=== PATIENT | female | born 1955 | race Hispanic/Latino ===

== ENCOUNTER → 2023-02-28 08:37 | Day surgery (SDC) | payer OTHER, SELFPAY ==
--- NOTE | 2023-02-28 09:01 | W.PN.UPDATE ---
Update Note
Progress Note Update
Pt here with son today. Pt admits to feeling unwell with flu like symptoms for the last 2-3days. Afebrile but has had chills, congestion, fatigue. For this reason we will be rescheduling procedure today. Pt and son are in agreement. Office notified
to reschedule
== END ==
LOC: CATH 08:37
PROVIDERS: ATTENDING PHYSICIAN Surgery Vascular Surgery; FAMILY PHYSICIAN Family Medicine
DX: N18.6 End stage renal disease (principal); Z53.09 Procedure and treatment not carried out because of other contraindication; I12.0 Hypertensive chronic kidney disease with stage 5 chronic kidney disease or end stage renal disease

== ENCOUNTER 2023-03-14 09:21 | Day surgery (SDC) | payer MEDICAID, SELFPAY ==
[2023-03-14] VITALS (14 sets, daily range): BP systolic 123–177; BP diastolic 57–86; BMI 27.8
[2023-03-14] MEDS: PERIDEX 0.12% ORAL RINSE 15 ML PO (10:22)
[2023-03-14] MEDS: BACTROBAN NASAL 1 GRAM NASAL (10:22)
[2023-03-14] MEDS: NSS 500 IV (10:22)
[2023-03-14 10:24] LABS: Hematocrit 25.8 % (37.0-47.0); Hemoglobin 8.7 g/dL (12.0-16.0); Mean Corp Hgb Conc. 33.7 g/dL (33.0-37.0); Mean Corpuscular Hgb 28.2 pg (27.0-31.0); Mean Corpuscular Volume 83.8 fL (81.0-99.0); Mean Platelet Volume 8.5 fL (7.4-10.4); Platelet Count 53 10^3/uL (130-400); Red Blood Cell Count 3.08 10^6/uL (4.20-5.40); Red Cell Dist. Width 15.3 % (11.5-14.5)
[2023-03-14 10:38] LABS: INR 1.31; PT 16.4 Sec (11.4-14.6)
[2023-03-14 10:47] LABS: APTT 54.3 Sec (23.4-35.0)
[2023-03-14 11:05] LABS: Blood Urea Nitrogen 38 mg/dl (7-17); Calcium 6.3 mg/dl (8.4-10.2); Carbon Dioxide 23 mmol/L (22-30); Chloride 105 mmol/L (98-107); Estimated Creatinine Clearance 7 ml/min; Glucose 100 mg/dl (70-99); Potassium 4.5 mmol/L (3.5-5.1); Sodium 137 mmol/L (135-145); eGFR 8.35
--- NOTE | 2023-03-14 11:21 | PTCARENOTE ---
Recd patient, son at bedside, Dr Kohler spoke at bedside and consent form signed, pt here for creation of fistular, pending to have procedure
--- NOTE | 2023-03-14 11:33 | W.SUR.PREOP ---
Pre-Operative Surgical Note
-
I have examined this patient prior to the performance of the scheduled procedure.
The patient's condition is unchanged from the time of the current History and
Physical and the patient is able to undergo the scheduled procedure.
--- NOTE | 2023-03-14 13:31 | W.SUR.POST ---
Surgical Immediate Post Op
Note
Pre Op Diagnosis: ESRD
Post Op Diagnosis: ESRD
Procedure Performed: Left upper extremity AV graft with 4 x 7 [place] propatent, exploration left wrist cephalic vein
Primary Surgeon: Mal Kohler MD
Assist: JAIME Mcmahan
Anesthesia: GETA
Estimated Blood Loss: 25 ml
Fluids: See anesthesia flowsheet
Drains/Shunts: N/A
Specimens/Cultures: N/A
Doppler/Duplex/Angio (Y/N): Y, duplex
Complications: None
Operative Findings: + thrill, palpable radial pulse
[2023-03-14] MEDS: DDAVP 54.25 MCG IV (14:35)
--- NOTE | 2023-03-14 14:58 | OR.RPT ---
Operative Report
Operative Report
PROCEDURE DATE: 03/14/2023
Preoperative diagnosis: CKD stage V
Postoperative diagnosis: Same
Procedure:
1. Exploration left wrist cephalic vein.
2. Left upper extremity upper arm AV graft with [place] Propaten 7 mm x 4 mm tapered graft.
Surgeon: Jose F
Frog Catcher: BRANDON Villalobos, required for all aspects of procedure including traction/countertraction, following of suture line, assistance with closure.
Complications: None
Anesthesia: General
Indications for procedure:
Chronic kidney disease approaching hemodialysis needs. Was referred for access. Risk/benefits/alternatives of AV access were discussed. She understood all wish to proceed. Of note the patient had chronic low platelets. Platelets prior to the
procedure were 53,000.
Description of procedure:
Patient was identified brought to the operating room placed on the table in supine position. Prior to prepping the patient, but after induction of anesthesia, I used an ultrasound probe to assess the upper arm and forearm veins in the left upper
extremity. The left forearm cephalic vein looks like the only reasonable vein actually. Given her low platelets, concern for bleeding, I elected to try to explore the cephalic vein here to see if we could avoid more extensive incisions. After the
adequate administration of anesthesia she was prepped and draped in the standard surgical fashion. A standard preoperative timeout was undertaken and everybody was in agreement the plan. A longitudinal incision made in the left distal
forearm/wrist on the radial aspect was carried through skin subcutaneous tissue. I identified the cephalic vein in the lateral aspect of the dissection field. It was a very reasonable vein. I mobilized it out of its bed and ligated any branches
between silk ties and then divided them.
Next I deepened my dissection on the medial aspect of the dissection field. This was carried through the fascial layer. And then identified the radial artery. Unfortunately, the radial artery was slightly small, but more importantly had
circumferential severe calcified plaque. To palpation it felt like would. I gently dissected more cephalad and noted as far as I could slide my finger up the artery was similar in consistency and caliber. Therefore I felt that this would not make
for a good fistula despite the adequacy of the vein.
Given that the patient did not have suitable upper arm veins, I elected to proceed with a graft. I made a longitudinal incision in the distal medial upper arm that is carried through skin subcutaneous tissue and then through the fascial layer.
Identified the brachial artery and then carefully dissected away from surrounding structures and great care to avoid any injury to structures. I passed Vesseloops around it proximally and distally.
Next I made an incision in the medial very proximal upper arm just distal to the antecubital fossa was carried through skin subcutaneous tissue. I carried this through the fascial layer. Identified what appeared to be one of the deep veins
(brachial or continuation of the axillary). Identified the nerve and then the artery as well. Of note there was a more superficial artery branch as well. It appeared to me that there may have been a high bifurcation of the radial artery and that
the more distal dissection was likely the ulnar artery. Although difficult to ascertain for sure. Regardless, the vein just superficial to the artery appeared to be the larger of the deep veins. I therefore now created a subcutaneous tunnel
between the 2 incision sites using a Guillermina tunneler and then I passed a [place] Propaten 7 mm x 4 mm tapered graft with a 4 mm and at the artery side. Next I gave the patient 3000 units of intravenous heparin. I then double up and tightened
Vesseloops on the artery proximally distally. I made an arteriotomy with 11 blade extended using a Schmidt scissor. I then beveled the 4 mm end of the graft and sewed an end to side anastomosis using [place] CV 6 suture in a running fashion. I
completed and tied to my suture line and then backbled and forward bled the artery through the graft and then clamped the graft. Next I released flow in the [place] artery system. There is good flow into the graft with pulsatility in the graft.
At this point I then placed bulldog clamps on the vein and the my proximal incision proximally distally. I made a venotomy with an 11 blade extended using a Schmidt scissor. I then trimmed and beveled the 7 mm end of the graft and sewed an end to
side anastomosis using a running [place] CV 6 suture. Prior to completing and tying to my suture line I backbled and forward bled the [place] vein, and then I flushed out the graft. Next I completed and tied down my suture line. I then released flow
in the graft by released my graft clamp. Now there is an excellent thrill through the graft. There was some oozing along the suture lines both at the arterial and venous sides. A couple of [place] CV 6 [id number] type sutures were placed along
the suture lines at any bleeding sites. However most of the bleeding sites were needle hole based. The patient's platelets were low, and I feel that this played a big role in oozing. Therefore I meticulously took a great amount of time to
achieved thorough hemostasis. We also called for DDAVP to be given as well. Finally I was able to achieve full hemostasis. Therefore I avoided having to give platelet transfusion.
We irrigated all 3 incision sites. They were all then closed in layers using 3-0 Vicryl deep dermal followed by 4 Monocryl subcuticular running suture. Dermabond was applied to all the sites. The patient tolerated procedure well.
[2023-03-14] MEDS: SUBLIMAZE 25 MCG IV (15:12)
[2023-03-14 15:28] LABS: Glucose - Point of Care 133 mg/dl (70-99)
== END 2023-03-14 18:05 | disposition home or self-care (01) ==
LOC: CATH 09:21
PROVIDERS: ATTENDING PHYSICIAN Surgery Vascular Surgery; FAMILY PHYSICIAN Internal Medicine
DX: N18.5 Chronic kidney disease, stage 5 (principal); I13.2 Hypertensive heart and chronic kidney disease with heart failure and with stage 5 chronic kidney disease, or end stage renal disease; I50.9 Heart failure, unspecified; E83.39 Other disorders of phosphorus metabolism; K51.90 Ulcerative colitis, unspecified, without complications; Z93.3 Colostomy status; K21.9 Gastro-esophageal reflux disease without esophagitis; E87.20 Acidosis, unspecified
CPT/HCPCS: 36830; 80048; 82962; 85027; 85610; 85730; 86850; 86900; 86901; 93005; J2597

== ENCOUNTER 2023-03-16 23:10 | Inpatient (IN) | payer MEDICAID, SELFPAY ==
[2023-03-16] VITALS (11 sets, daily range): BP systolic 144–163; BP diastolic 68–80; PULSE 2–100; BMI 26.5
[2023-03-16 21:44] LABS: % Basophils 0.3 % (0-2); % Eosinophils 1.1 % (0-6); % Immature Granulocytes 0.7 % (0-0.5); % Lymphocytes 9.6 % (20.5-51.1); % Monocytes 3.9 % (1.7-9.3); % Neutrophils 84.4 % (42.2-75.2); Absolute Eosinophils 0.1 10^3/uL (0-0.7); Absolute Immature Granulocytes 0.1 10^3/uL (0-0.05); Absolute Lymphocytes 0.7 10^3/uL (1.2-3.4); Absolute Monocytes 0.3 10^3/uL (0.1-0.6); Absolute Neutrophils 6.1 10^3/uL (1.4-6.5); Hematocrit 26.3 % (37.0-47.0); Hemoglobin 8.8 g/dL (12.0-16.0); Mean Corp Hgb Conc. 33.5 g/dL (33.0-37.0); Mean Corpuscular Volume 83.8 fL (81.0-99.0); Nucleated Red Blood Cells % 0 %; Red Blood Cell Count 3.14 10^6/uL (4.20-5.40); Red Cell Dist. Width 15.1 % (11.5-14.5); White Blood Cell Count 7.3 10^3/uL (4.8-10.8)
[2023-03-16 21:57] LABS: Mean Platelet Volume 8.6 fL (7.4-10.4); Platelet Count 90 10^3/uL (130-400)
[2023-03-16 22:00] LABS: ALT (SGPT) < 10 U/L (0-35); AST (SGOT) 25 U/L (14-36); Albumin 4.5 g/dl (3.5-5.0); Alkaline Phosphatase 96 U/L (38-126); Blood Urea Nitrogen 52 mg/dl (7-17); Carbon Dioxide 21 mmol/L (22-30); Chloride 97 mmol/L (98-107); Glucose 129 mg/dl (70-99); Potassium 5.7 mmol/L (3.5-5.1); Sodium 133 mmol/L (135-145); Total Bilirubin 0.8 mg/dl (0.2-1.3); Total Protein 8.2 g/dl (6.3-8.2); eGFR 7.98
[2023-03-16] MEDS: LASIX 40 MG IV (22:07)
[2023-03-16 22:09] LABS: NT-proBNP > 27000 pg/ml; Troponin I 0.045 ng/ml
--- NOTE | 2023-03-16 22:29 | ED.GENMED ---
History of Present Illness
General
Chief Complaint: Breathing Problem
Source: patient and family
Exam Limitations: none
Time Seen by Provider: 03/16/23 21:39
Travel History
Have you had any contact with someone who has COVID-19?: No
Do you have any symptoms of coronavirus? Fever > 100 degrees, chills, cough, shortness of breath, sore throat, loss of taste or smell, muscle aches, or headache?: Yes
Symptoms:: shortness
History of Present Illness
History of Present Illness:
57-year-old female sudden onset of shortness of breath 2 to 3 hours ago. Patient with a history of renal failure. Recently had an AV fistula placed. Apparently scheduled to start dialysis in the near future. No chest pain no fever no infectious
symptoms.
Past History
Past History
ED Past Medical History: Other (Renal failure. Ulcerative colitis)
ED Past Surgical History: Gynecological and Other (Colostomy. AV fistula)
Social History
Tobacco: Former smoker
Personal:
Living: with family
Employment: Retired
Family History
Family History: Other (reviewed and noncontributory)
Review of Systems
Review of Systems
All Other Systems: Not applicable
Constitutional: Denies fever
Respiratory: Denies cough
Cardiac: Denies chest pain
Phy Exam
Physical Exam
Physical Exam:
GENERAL: Alert and oriented. Moderate tachypnea.
EYE: Orbits normal.
NECK: Supple, no significant adenopathy.
ENT: Pharynx without erythema
CARDIAC: Regular rate and rhythm without any obvious murmurs.
LUNGS: Diffuse rales throughout. Moderate tachypnea.
ABDOMEN: Soft, without focal tenderness or distention. Colostomy in place. No stool in the bag however abdomen is soft and nontender and there are bowel sounds present
NEUROLOGICAL: Alert and oriented , grossly non-focal
SKIN: Warm and dry, no rash or lesion, no discoloration, skin intact.
MUSCULOSKELETAL: Moderate bilateral lower extremity pitting edema
PSYCH: Normal and appropriate interaction.
Scores
Heart Failure Risk
Heart Failure Risk Score: Yes
History of Stroke or TIA: No
History of intubation for respiratory distress: No
Heart rate on ED arrival >/= 110: Yes
SaO2 <90% on arrival on room air: Yes
HR >/=110 during 3min walk test (or too ill to perform test): Yes
ECG has acute ischemic changes: No
Urea >/=12mmol/L (BUN 33.6mg/dL): Yes
Serum CO2>/=35mmol/L: No
Troponin I or T elevated to DC Level (0.4mg/dL): No
NT-proBNP >/=5,000ng/L (5,000pg/ml): Yes
HF Risk Score: 5
Admission Status: VERY HIGH RISK 39.8% Consider admission to hospital
Course
Orders/Labs/Results
Orders:
Orders
03/16/23 21:28
EKG [Electrocardiogram (*1)] Urgent
Reason for Study: Shortness of Breath
EKG- Treatment ONCE
03/16/23 21:38
Complete Blood Count/With Diff Urgent
Comprehensive Metabolic Panel Urgent
NT-proBNP Urgent
Troponin I Urgent
03/16/23 21:39
CXR Port [CR Chest Portable - 1 View] Urgent
Comment:
Reason For Exam: sob
Reason Study Needs to be Portable: Unable to Transport
03/16/23 21:46
Bipap [RESP] Urgent
Patient to use own unit?: No
Inspiratory Pressure (cm H2O): 12
Expiratory Pressure (cm H2O): 5
03/16/23 21:47
Furosemide [Lasix] 40 mg IV NOW STA
03/16/23 22:15
COVID-19 Antigen Urgent
Source: Nasal Swab
Influenza A+B Rapid Molecular Urgent
ROSMERY Source: Nasal Swab
Specimen Description:
03/16/23 22:55
Admit/Transfer Patient As Directed
Co-Sign Provider:
Level of Care: Inpatient admission
Assign to:: IMU- Intermediate Care
Physician / Group: smiley
Diagnosis: ESRD
Reason for Hospitalization: ESRD
Expected length of stay greater than two midnights?: Yes
ELOS- Estimated Length of Stay in days: 2
I certify the patient meets the requirements for IP care: Yes
03/16/23 22:56
Code Status As Directed
Resuscitation Status: Full Code
03/16/23 22:59
Abdomen Xray - 1 View [CR Abdomen - 1 View] Urgent
Comment:
Reason For Exam: distention, constipation
03/17/23 00:01
Acetaminophen [Tylenol] 1,000 mg PO Q6H PRN
03/17/23 00:01
NEPHROLOGY CONSULT Routine
Consulting Provider: Aramis Avendaño V.
Was physician already notified: Yes
Activity As Directed
Activity Level: As Tolerated
Pneumatic Compression Sleeves As Directed
Type: Knee high
Vital Signs As Directed
Frequency: Per unit guidelines
DX Deep Vein Thrombosis Video Routine
03/17/23 00:07
Pantoprazole [Protonix] 40 mg PO DAILYPRN PRN
03/17/23 06:00
Complete Blood Count/With Diff IN AM
Comprehensive Metabolic Panel IN AM
03/17/23 08:00
Calcium Acetate [Phoslo] 667 mg PO TID
Carvedilol [Coreg] 12.5 mg PO BID
Clonidine [Catapres] 0.1 mg PO BID
HydrALAZINE [Apresoline] 100 mg PO TID
Sodium Bicarbonate 1,300 mg PO TID
03/17/23 Dinner
NPO
Allow oral meds: Yes
Allow clear liquids: Sips of Clears
03/17/23 22:00
Amlodipine [Norvasc] 10 mg PO HS
Abnormal Lab Results
03/16/23
21:38
RBC 3.14 L 10^6/uL
(4.20-5.40)
Hgb 8.8 L g/dL
(12.0-16.0)
Hct 26.3 L %
(37.0-47.0)
RDW 15.1 H %
(11.5-14.5)
Plt Count 90 L D 10^3/uL
(130-400)
Abs Immat Gran (auto) 0.1 H 10^3/uL
(0-0.05)
Absolute Lymphs (auto) 0.7 L 10^3/uL
(1.2-3.4)
Immature Gran % 0.7 H %
(0-0.5)
Neutrophils % 84.4 H %
(42.2-75.2)
Lymphocytes % 9.6 L %
(20.5-51.1)
Sodium 133 L mmol/L
(135-145)
Potassium 5.7 H D mmol/L
(3.5-5.1)
Chloride 97 L mmol/L
(98-107)
Carbon Dioxide 21 L mmol/L
(22-30)
BUN 52 H mg/dl
(7-17)
Creatinine 5.5 H* mg/dL
(0.6-1.0)
Glucose 129 H mg/dl
(70-99)
Calcium 6.0 L* mg/dl
(8.4-10.2)
Troponin I 0.045 H* ng/ml
03/16/23 21:38
03/16/23 21:38
Vital Signs
Initial and Last Documented VS:
Initial Vital Signs
Temp Pulse Resp BP Pulse Ox
98.9 F 102 25 163/78 69
03/16/23 21:21 03/16/23 21:21 03/16/23 21:21 03/16/23 21:21 03/16/23 21:21
Last Documented Vital Signs
Temp Pulse Resp BP Pulse Ox
98.0 F 89 29 144/70 94
03/17/23 00:19 03/16/23 23:45 03/16/23 23:45 03/16/23 23:45 03/17/23 00:42
*Radiology
Radiology exam reviewed: preliminary read by ED provider (Pulmonary edema) and radiology read reviewed (Pulmonary edema)
*Pulse Oximetry
Patient hypoxic: yes
*Critical Care Note
Total Time (30-74mins, 75-104mins- exclusive of procedures): 40
Data Reviewed
Review of Other/Old Records Reveals: Labs, Records and Testing
Update Note
Update Note:
Patient rechecked multiple times. Appears relatively stable on the BiPAP. Discussed with nephrology. Discussed with hospitalist.
ED Attending Note
-
Portions of this chart may have been created with voice recognition software.� Occasional wrong word or��sound alike� substitutions may have occurred due to the inherent limitations of voice recognition software.
Discharge Plan
Departure
Patient Disposition: Admit
Date of Disposition: 03/16/23
Time of Disposition: 22:29
Presentation/result/management discussed w/ accepting MD/DO: Nephrology
Discharge Problem:
Flash pulmonary edema, Respiratory distress, Renal failure, Hyperkalemia, Anemia
Interventions
Interventions:
*Risk Screen - Suicide Last Done: 03/16/23 21:27
*General Assessment Last Done: 03/16/23 21:27
*Neglect/Abuse Screening Last Done: 03/16/23 21:27
*ED COVID-19 Vaccine History Last Done: 03/16/23 21:27
*Nursing Disposition Last Done: 03/17/23 00:08
ED- Cardiac Assessment Last Done: 03/16/23 21:54
ED- Pulmonary Assessment Last Done: 03/16/23 21:54
Discharge Date and Time
Discharge Date/Time: 03/17/23 00:09
[2023-03-16 22:35] LABS: COVID-19 Antigen Negative (Negative)
--- NOTE | 2023-03-16 23:01 | HPS.HSE ---
Family Physician
-
Family Physician: NOT KNOW UNKNOWN - PT DOES
Chief Complaint
-
shortness of breath
History of Present Illness
67-year-old Spanishj speaking female past medical history of CKD 5 with impending dialysis with recent AV fistula placed 2 days ago, hypertension, GERD, ulcerative colitis status post colostomy 15 years ago presenting with shortness of breath
starting 2 to 3 hours ago. Denies chest pain. No fever or cough. Has increased lower extremity edema. She does make urine.
Patient had left upper extremity fistula placed 2 days ago for impending dialysis. She has not had a bowel movement through her colostomy in 2 days. Abdomen is distended and tender to palpation. No nausea or vomiting.
No smoking or alcohol use.
Medical History
Past Medical History
Past Medical History: Reports Other (CKD 5 with impending dialysis with recent AV fistula placed 2 days ago, hypertension, GERD, ulcerative colitis status post colostomy 15 years ago)
Past Surgical History: Reports Other (colostomy )
Social History
Tobacco: Non-smoker
Alcohol: None
Drug: None
Family History
Family History: Not pertinent
Allergies / Home Medications
Allergies reflects when Allergies were last updated in [facility].
Home Medications with original date entered in [facility]
Allergy/Medication List:
Allergies
Allergy/AdvReac Type Severity Reaction Status Date / Time
shellfish derived Allergy Unknown Verified 03/16/23 21:27
Home Medications
furosemide 20 mg tablet 20 mg PO DAILY 30 days #30 tabs 05/29/21
sodium bicarbonate 650 mg tablet 1,300 mg PO TID 02/16/22
amlodipine 10 mg tablet 10 mg PO HS Blood pressure 06/19/22
carvedilol 12.5 mg tablet 12.5 mg PO BID 06/19/22
hydralazine 50 mg tablet 100 mg PO TID 06/19/22
omeprazole 20 mg tablet,delayed release 20 mg PO DAILYPRN PRN heartburn 06/19/22
acetaminophen 500 mg tablet 1,000 mg PO Q6H PRN mild pain/fever 02/23/23
clonidine HCl 0.1 mg tablet 0.1 mg PO BID 02/23/23
Guaifenesin DM 20 ml PO BIDPRN PRN cough 03/14/23
calcium acetate 667 mg tablet 667 mg PO TID 03/14/23
Review of Systems
-
History Source: Patient
A 12 point ROS was completed and negative except as noted: Yes
Constitutional: Reports No Symptoms
EENT: Reports No Symptoms
Respiratory: Reports See HPI
Cardiac: Reports No Symptoms
Abdomen/GI: Reports See HPI
: Reports No Symptoms
Musculoskeletal: Reports No Symptoms
Skin: Reports No Symptoms
Neurological: Reports No Symptoms
Endocrine: Reports No Symptoms
Hematologic/Lymphatic: Reports No Symptoms
Psych: Reports No Symptoms
Physical Exam
Vital Signs
Vital Signs
Temp Pulse Resp BP Pulse Ox
98.9 F 89 24 145/75 92
03/16/23 21:21 03/16/23 22:45 03/16/23 22:30 03/16/23 22:45 03/16/23 22:45
Physical Exam
General: Well Developed, Well Nourished and No Apparent Distress
HEENT: NormoCephalic, Moist mucous membranes and Atraumatic
Respiratory: Clear
Cardiac: S1/S2 and Regular Rhythm; No Murmur or Rub
GI: Soft, Normal Bowel Sounds, Tender and Distended; No Organomegaly
Rectal: Deferred by Provider
Musculoskeletal: No Clubbing, No Cyanosis and No Edema
Skin: No Rash
Neuro: Nonfocal/grossly intact
Laboratory Results
-
03/16/23 21:38
03/16/23 21:38
Laboratory Results
Total Bilirubin 0.8 mg/dl (0.2-1.3) 03/16/23 21:38
AST 25 U/L (14-36) 03/16/23 21:38
ALT < 10 U/L (0-35) 03/16/23 21:38
Alkaline Phosphatase 96 U/L (38-126) 03/16/23 21:38
Troponin I 0.045 ng/ml H* 03/16/23 21:38
Data Reviewed
-
Lab Data: Labs Reviewed by me
Old Records: Reviewed
Impression/Plan
-
IMPRESSION:
PLAN:
# Volume overload secondary to progressive CKD 5
# Hyperkalemia
-chest x-ray shows cardiomegaly with bilateral fluffy airspace disease most consistent with CHF
-Cardiac BNP of 27,000
-Patient on BiPAP
-40 IV Lasix given
-Continue sodium bicarb
-May require dialysis, nephrology consulted
-N.p.o while on BiPAP
# Hypocalcemia secondary to CKD 5
# Hyperphosphatemia
-Check phosphorus
-Continue calcium
# Abdominal distention/constipation likely secondary to recent anesthesia
-Abdomen tender to palpation diffusely
-Check abdominal x-ray prior to starting MiraLAX
# Chronic anemia of renal disease
-Hemoglobin stable at 8.8
# Chronic thrombocytopenia
-Unclear etiology
-Platelets stable
Essential hypertension
-Continue hydralazine, clonidine, Coreg
GERD
-Continue omeprazole
Full code
DVT prophylaxis�SCDs
N.p.o.
[2023-03-17] VITALS (32 sets, daily range): BP systolic 116–187; BP diastolic 45–138; PULSE 2–86; BMI 24.9
--- NOTE | 2023-03-17 00:35 | PTCARENOTE ---
PT ARRIVES TO 2255 ON BIPAP 01/09.LINGS WITH CRACKLES THROUGHOUT AX3 LUXEMBOURGISH SPEAKING ONLY. SON/DAUGHTER AT BEDSIDE TO TRANSLATE- SINUS BP WNL-- 2 DAY OLD AV FISTULA INTACT WITH BRUISING AND POSITIVE THRILL AND BRUIT. ORENTED TO ROOM- PT FEELS
BETTER PER REPORT
[2023-03-17 05:33] LABS: % Basophils 0.2 % (0-2); % Eosinophils 0.7 % (0-6); % Immature Granulocytes 0.7 % (0-0.5); % Lymphocytes 16.1 % (20.5-51.1); % Monocytes 6.5 % (1.7-9.3); % Neutrophils 75.8 % (42.2-75.2); Absolute Lymphocytes 0.9 10^3/uL (1.2-3.4); Absolute Monocytes 0.4 10^3/uL (0.1-0.6); Absolute Neutrophils 4.3 10^3/uL (1.4-6.5); Hematocrit 21.1 % (37.0-47.0); Hemoglobin 7.1 g/dL (12.0-16.0); Mean Corp Hgb Conc. 33.6 g/dL (33.0-37.0); Mean Corpuscular Hgb 29.7 pg (27.0-31.0); Mean Corpuscular Volume 88.3 fL (81.0-99.0); Nucleated Red Blood Cells % 0 %; Platelet Count 71 10^3/uL (130-400); Red Blood Cell Count 2.39 10^6/uL (4.20-5.40); Red Cell Dist. Width 14.7 % (11.5-14.5); White Blood Cell Count 5.7 10^3/uL (4.8-10.8)
--- NOTE | 2023-03-17 05:56 | PTCARENOTE ---
tolerating bipap but eager to get it off- pt can not sleep with it on. daughter remians at bedside and is very helpful with translating and cares
[2023-03-17 05:57] LABS: ALT (SGPT) < 10 U/L (0-35); AST (SGOT) 18 U/L (14-36); Albumin 3.2 g/dl (3.5-5.0); Alkaline Phosphatase 78 U/L (38-126); Blood Urea Nitrogen 52 mg/dl (7-17); Calcium 5.4 mg/dl (8.4-10.2); Carbon Dioxide 23 mmol/L (22-30); Chloride 100 mmol/L (98-107); Estimated Creatinine Clearance 7 ml/min; Glucose 96 mg/dl (70-99); Potassium 5.2 mmol/L (3.5-5.1); Sodium 132 mmol/L (135-145); Total Bilirubin 0.6 mg/dl (0.2-1.3); Total Protein 6.3 g/dl (6.3-8.2); eGFR 7.65
[2023-03-17] MEDS: PHOSLO PO ×2 (08:00→22:27)
[2023-03-17] MEDS: CATAPRES 0.100000000000000006 MG PO ×2 (08:19→20:36)
[2023-03-17] MEDS: COREG 12.5 MG PO ×2 (08:19→20:35)
[2023-03-17] MEDS: SODIUM BICARBONATE 1300 MG PO (08:19)
[2023-03-17] MEDS: APRESOLINE 100 MG PO ×2 (08:19→22:19)
--- NOTE | 2023-03-17 08:46 | CON.MD ---
Consultation - Medical
-
Impression:
CKD 5 with YESSENIA and hypoxia with CHF
Status post left upper extremity AV fistula 48 hours prior
History of left hydronephrosis
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
Hyperkalemia
Chronic metabolic acidosis
GERD
Hypertension
Ig kappa MGUS follows heme
[facility] s/p colostomy 2011
Splenomegaly
h/o nephrolithiasis
h/o meningoencephalitis with seizures in 05/2021
h/o psoriasis
Secondary hyperparathyroidism
Plan:
-Emergent dialysis to be performed today
-IR consulted for catheter
--- NOTE | 2023-03-17 09:16 | W.PN.HOSP.TC ---
Today's Communication/Plan
-
Dialysis today
Check labs
Transition to mid flow oxygen as able
Bowel regimen
Assessment / Plan
Assessment / Plan
Gen-AAOx3, NAD
HEENT-NC, AT, anicteric, clear oral mm
Neck-supple
CV-reg, no M, +S1/S2
Lungs-clear B/L
Abd-soft, NT, ND, ostomy intact but empty
Ext-no edema
Musculoskeletal-no cyanosis, clubbing
Skin-warm and dry
Neuro-grossly non-focal
Psych-calm, cooperative
Acute hypoxic respiratory failure -due to progressive ESRD, pulmonary edema. Transition from mid flow 15 L to BiPAP this morning. Would go back to mid flow if tolerated. Discussed with nursing.
ESRD -for emergent dialysis today. IR consulted for dialysis catheter. Nephrology aware. Left upper extremity AV graft placed on 03/14.
Constipation -bowel regimen will be ordered. Family notes no bowel movement for the past 5 days.
Hypocalcemia -check magnesium, phosphate levels.
Hyponatremia -132. Likely due to hypervolemia.
Hyperkalemia -likely due to ESRD. Should improve with dialysis today.
Acute on chronic anemia -hemoglobin down to 7.1 this morning. No obvious bleeding. Consent for transfusion obtained, will wait 1 more day before transfusing giving need for emergent dialysis today and removal of volume. Discussed with nephrology.
Chronic thrombocytopenia -counts are stable. Etiology unclear. Monitor for now.
Elevated troponin -suspect non-[place] troponin elevation due to critical illness. Will recheck today.
Essential hypertension
GERD
Full code
Family updated at the bedside.
Anticipated Discharge: > 48 hours
Subjective/Interval History
-
Date of Service: March 17, 2023
Patient seen and examined. Family at the bedside, assisting with translation. Patient notes shortness of breath. On BiPAP currently.
Objective Data
-
Labs:
Laboratory Results
03/16/23 03/17/23
21:38 04:49
WBC 7.3 5.7
Hgb 8.8 L 7.1 L
Hct 26.3 L 21.1 L
Plt Count 90 L D 71 L D
Sodium 133 L 132 L
Potassium 5.7 H D 5.2 H
Chloride 97 L 100
Carbon Dioxide 21 L 23
BUN 52 H 52 H
Creatinine 5.5 H* 5.7 H*
Glucose 129 H 96
Calcium 6.0 L* 5.4 L*
Total Bilirubin 0.8 0.6
AST 25 18
ALT < 10 < 10
Alkaline Phosphatase 96 78
Vital Signs:
Vital Signs
Temp Pulse Resp BP Pulse Ox
98.5 F 93 28 143/64 95
03/17/23 07:24 03/17/23 08:00 03/17/23 08:00 03/17/23 08:00 03/17/23 08:36
I&O
03/16/23 03/17/23 03/18/23
06:59 06:59 06:59
Intake Total 0 / 0
Output Total 100 / 100
Balance -100 / -100
Review of Systems
-
Unable to obtain full review of systems at this time due to: Language Barrier
History Source: Family
All other systems: Reviewed and negative
[2023-03-17 10:03] LABS: Magnesium 1.4 mg/dl (1.6-2.3); Phosphorus 7.2 mg/dl (2.5-4.5)
[2023-03-17] MEDS: DULCOLAX 10 MG PO (10:16)
[2023-03-17] MEDS: CALCIUM GLUCONATE 290 MG IV (10:20)
[2023-03-17] MEDS: LASIX 80 MG IV (10:23)
[2023-03-17 12:09] LABS: Iron 47 ug/dl (37-170); Percent Saturation 24 % (20-50); Total Iron Binding Capacity 193 ug/dl (265-497)
[2023-03-17 14:07] LABS: Troponin I 0.086 ng/ml
--- NOTE | 2023-03-17 16:14 | PTCARENOTE ---
Pt presents as assessed. Aox3. Tajik speaking. Family at bedside. Transitioned on and off bipap to mid flow by RT. Sating in the mid 90's. Labs IRAD to bedside to place temporary HD Cath. Pt placed back on bipap by RT and HD RN at bedside to begin
first treatment. Pt and family updated on plan of care.
[2023-03-17] MEDS: APRESOLINE PO (16:19)
--- NOTE | 2023-03-17 16:48 | W.PN.NEPH.HD ---
Addendum entered and electronically signed by Aramis Avendaño DO 03/17/23 16:53:
change calcium bath to 3
change K bath to 2
Original Note:
Assessment
-
Patient seen on HD
sbp stable for u/f
HD again tomorrow
Progress Note - Hemodialysis
-
Date of Service: March 17, 2023
Duration: 15 minutes and 2 hours
Potassium Bath: 3
Calcium Bath: 2.5
Opti-Dialyzer: 160
Ultrafiltration: Other (2kg)
Blood Flow: 250
Dialysate Flow: 600
Heparin: none
EPO: given
[2023-03-17] MEDS: MANNITOL 12.5 GRAMS IV ×2 (17:00→18:00)
[2023-03-17] MEDS: RETACRIT 6000 UNITS IV (17:03)
[2023-03-17] MEDS: SODIUM BICARBONATE PO (17:48)
[2023-03-17] MEDS: LOPRESSOR 5 MG IV (18:23)
[2023-03-17] MEDS: KLONOPIN 0.5 MG PO (18:26)
--- NOTE | 2023-03-17 18:27 | PTCARENOTE ---
Pt tachycardic to the 140's during HD. Son reports pt may be anxious. TT to Dr Garcia- forwarded by him to [employer] Dr. Bahena. Order received for one time Clonipin. Verbal order received from Dr. Prabhakar for IVP Metoprolol. Both medications
given as ordered, see MAR. Remains on HD at this time.
[2023-03-17] MEDS: HEPARIN 2200 UNITS INTRACATH (18:40)
[2023-03-17] MEDS: PHOSLO 667 MG PO (20:35)
[2023-03-17] MEDS: COLACE 100 MG PO (20:36)
[2023-03-17 21:30] LABS: Troponin I 0.083 ng/ml
[2023-03-17] MEDS: NORVASC 10 MG PO (22:20)
--- NOTE | 2023-03-17 23:52 | PTCARENOTE ---
Received pt at start of shift. Family at bedside. aaox3, pleasant, haitian speaking. Denies pain. Remains on bipap. Took bipap off briefly for meal time after HD, on 15LMF 93% tolerated well. Back on bipap for the night. Daughter staying overnight.
Took pills whole with water no issues. Had one coughing episode when drinking with daughter, desat to 89% for a brief moment but recovered fine. LAVF + thirll & Bruit, site is sore and bruised. Colostomy in place, had moderate BM soft brown. R HD
cath in place. Trending trops. Bed alarm on. Call beltran in reach. will monitor.
[2023-03-18] VITALS (43 sets, daily range): BP systolic 109–178; BP diastolic 43–133; PULSE 2–79; BMI 23.9
[2023-03-18] MEDS: MANNITOL 12.5 GRAMS IV ×2 (08:30→09:38)
[2023-03-18 08:31] LABS: % Basophils 0.5 % (0-2); % Eosinophils 0.9 % (0-6); % Immature Granulocytes 0.5 % (0-0.5); % Lymphocytes 15.8 % (20.5-51.1); % Neutrophils 72.3 % (42.2-75.2); Absolute Lymphocytes 0.7 10^3/uL (1.2-3.4); Absolute Monocytes 0.4 10^3/uL (0.1-0.6); Absolute Neutrophils 3.1 10^3/uL (1.4-6.5); Mean Corp Hgb Conc. 33.3 g/dL (33.0-37.0); Mean Corpuscular Hgb 29.1 pg (27.0-31.0); Mean Corpuscular Volume 87.4 fL (81.0-99.0); Mean Platelet Volume 9.6 fL (7.4-10.4); Nucleated Red Blood Cells % 0 %; Platelet Count 47 10^3/uL (130-400); Red Cell Dist. Width 14.2 % (11.5-14.5); White Blood Cell Count 4.3 10^3/uL (4.8-10.8)
[2023-03-18 08:33] LABS: Hematocrit 20.1 % (37.0-47.0); Hemoglobin 6.7 g/dL (12.0-16.0)
--- NOTE | 2023-03-18 08:40 | W.PN.HOSP.TC ---
Today's Communication/Plan
-
Dialysis
Transfuse
Monitor labs
Assessment / Plan
Assessment / Plan
Gen-awake, alert, BiPAP mask
HEENT-NC, AT, anicteric
Neck-supple
CV-reg, no M, +S1/S2
Lungs-clear B/L
Abd-soft, NT, ND, ostomy intact but empty
Ext-no edema
Musculoskeletal-no cyanosis, clubbing
Skin-warm and dry
Neuro-grossly non-focal
Psych-calm, cooperative
Acute hypoxic respiratory failure -due to progressive ESRD, pulmonary edema. Still on BiPAP. Nursing notes that she desaturates rapidly without it.
ESRD - Left upper extremity AV graft placed on 03/14. Started hemodialysis yesterday, currently getting dialysis again today. Still with volume overload.
Constipation -bowel regimen will be ordered. Family notes no bowel movement for the past 5 days.
Hypocalcemia -check magnesium, phosphate levels.
Hyponatremia - labs pending for today.
Hyperkalemia -likely due to ESRD. Should improve with dialysis today.
Acute on chronic anemia -hemoglobin down to 6.7 this morning. No obvious bleeding. Transfuse 1 unit of blood today on dialysis. Discussed with nephrology.
Chronic thrombocytopenia -counts are stable. Etiology unclear. Monitor for now.
Pancytopenia -unclear etiology of leukopenia. Monitor for now.
Elevated troponin -suspect non-[place] troponin elevation due to critical illness. Troponin has peaked.
Essential hypertension -stable.
GERD
Full code
Family updated at the bedside.
Anticipated Discharge: > 48 hours
Subjective/Interval History
-
Date of Service: March 18, 2023
Patient seen and examined. Currently on dialysis. No complaints.
Objective Data
-
Labs:
Laboratory Results
03/18/23
07:57
WBC 4.3 L
Hgb 6.7 L*
Hct 20.1 L*
Plt Count 47 L D
Sodium Pending
Potassium Pending
Chloride Pending
Carbon Dioxide Pending
BUN Pending
Creatinine Pending
Glucose Pending
Calcium Pending
Vital Signs:
Vital Signs
Temp Pulse Resp BP Pulse Ox
98.3 F 66 14 118/43 97
03/18/23 03:30 03/18/23 04:00 03/18/23 04:00 03/18/23 04:00 03/18/23 04:00
I&O
03/17/23 03/18/23 03/19/23
06:59 06:59 06:59
Intake Total 0 / 0 120 / 120
Output Total 100 / 100 450 / 450
Balance -100 / -100 -330 / -330
Review of Systems
-
Unable to obtain full review of systems at this time due to: Acuity and Language Barrier
[2023-03-18 08:44] LABS: Blood Urea Nitrogen 34 mg/dl (7-17); Calcium 7.3 mg/dl (8.4-10.2); Carbon Dioxide 29 mmol/L (22-30); Chloride 98 mmol/L (98-107); Estimated Creatinine Clearance 10 ml/min; Glucose 92 mg/dl (70-99); Magnesium 1.6 mg/dl (1.6-2.3); Phosphorus 5.6 mg/dl (2.5-4.5); Potassium 4.2 mmol/L (3.5-5.1); Sodium 131 mmol/L (135-145)
--- NOTE | 2023-03-18 09:05 | W.PN.NEPH.HD ---
Assessment
-
Patient seen on HD
sbp stable with stable HR at current u/f
gave IV metoprolol for bursts of atrial arrhythmias last evening on HD
for blood transfusion today
HD again tomorrow
no heparin for thrombocytopenia
Patient will require outpatient dialysis center , will require non [facility] unit as she is Medicaid
Progress Note - Hemodialysis
-
Date of Service: March 18, 2023
Duration: 30 minutes and 2 hours
Potassium Bath: 3
Calcium Bath: 3
Opti-Dialyzer: 160
Ultrafiltration: Other (2kg as hemodynamically tolerated)
Blood Flow: 300
Dialysate Flow: 600
Heparin: none
EPO: none
[2023-03-18] MEDS: HEPARIN 2100 UNITS INTRACATH (10:37)
[2023-03-18] MEDS: COREG 12.5 MG PO ×2 (11:10→20:49)
[2023-03-18] MEDS: APRESOLINE 100 MG PO ×3 (11:11→21:53)
[2023-03-18] MEDS: PHOSLO 667 MG PO ×3 (11:12→21:53)
[2023-03-18] MEDS: COLACE 100 MG PO ×2 (11:12→20:49)
[2023-03-18] MEDS: CATAPRES 0.100000000000000006 MG PO ×2 (11:12→20:49)
[2023-03-18] MEDS: MIRALAX 17 GRAMS PO (11:12)
--- NOTE | 2023-03-18 12:19 | PTCARENOTE ---
Pt with irreg heart rate with burst of tachycardia. EKG completed, NSR with PACs confirmed. Pt tolerated HD today well. O2 needs improving.
[2023-03-18] MEDS: NORVASC 10 MG PO (21:53)
[2023-03-19] VITALS (37 sets, daily range): BP systolic 114–168; BP diastolic 30–88; PULSE 77; O2SAT 99; BMI 23.3
[2023-03-19 04:38] LABS: % Basophils 0.2 % (0-2); % Eosinophils 1.5 % (0-6); % Immature Granulocytes 0.4 % (0-0.5); % Lymphocytes 16.9 % (20.5-51.1); % Monocytes 7.5 % (1.7-9.3); % Neutrophils 73.5 % (42.2-75.2); Absolute Eosinophils 0.1 10^3/uL (0-0.7); Absolute Lymphocytes 0.8 10^3/uL (1.2-3.4); Absolute Monocytes 0.4 10^3/uL (0.1-0.6); Absolute Neutrophils 3.4 10^3/uL (1.4-6.5); Hematocrit 24.5 % (37.0-47.0); Mean Corp Hgb Conc. 33.1 g/dL (33.0-37.0); Mean Corpuscular Hgb 28.4 pg (27.0-31.0); Mean Platelet Volume 9.3 fL (7.4-10.4); Nucleated Red Blood Cells % 0 %; Platelet Count 45 10^3/uL (130-400); Red Blood Cell Count 2.85 10^6/uL (4.20-5.40); White Blood Cell Count 4.7 10^3/uL (4.8-10.8)
[2023-03-19 04:39] LABS: Hemoglobin 8.1 g/dL (12.0-16.0)
[2023-03-19 04:59] LABS: Blood Urea Nitrogen 22 mg/dl (7-17); Calcium 7.3 mg/dl (8.4-10.2); Carbon Dioxide 31 mmol/L (22-30); Chloride 98 mmol/L (98-107); Estimated Creatinine Clearance 14 ml/min; Glucose 97 mg/dl (70-99); Magnesium 1.6 mg/dl (1.6-2.3); Phosphorus 3.7 mg/dl (2.5-4.5); Potassium 4.1 mmol/L (3.5-5.1); Sodium 130 mmol/L (135-145); eGFR 17.21
--- NOTE | 2023-03-19 05:09 | PTCARENOTE ---
Nurse wanted to put in vitals, and do daily weight.
--- NOTE | 2023-03-19 06:39 | PTCARENOTE ---
Took care of patient overnight. Family at bedside. aaox3, pleasant. Continues to be on 12LMF lungs diminished. NO issues overnight. Good urine output. NO pain. VSS. will continue to monitor.
[2023-03-19] MEDS: APRESOLINE 100 MG PO ×2 (09:39→21:36)
[2023-03-19] MEDS: COREG 12.5 MG PO ×2 (09:40→20:49)
[2023-03-19] MEDS: MIRALAX 17 GRAMS PO (09:40)
[2023-03-19] MEDS: CATAPRES 0.100000000000000006 MG PO ×2 (09:40→20:49)
[2023-03-19] MEDS: PHOSLO 667 MG PO ×2 (09:40→21:36)
[2023-03-19] MEDS: COLACE 100 MG PO ×2 (09:40→20:49)
--- NOTE | 2023-03-19 11:18 | CM ---
Addendum entered by Daya Espinal RN 03/20/23 14:54:
correction- Patient has no Family Physician. She no longer goes to [facility].
Original Note:
Icelandic speaking patient with Dx ESRD with new HD, pulmonary edema, anemia, pancytopenia. O2 8L midflow.
Spoke with patient's son Vijay;
the patient resides with her Vijay Tran, in a first floor apartment with 1 RAK[address].
The patient is able to wash/dress by herself and assists with colostomy care.
The patient is only able to ambulate short distances in the house without using an assistive device - son inquiring about the use of a RW as he is worried about her falling. No prior falls.
No SME.
Prior [facility].
No prior SNF.
PCP - [facility]
Pharmacy - [facility]
The family has discussed that they would like the to quit his job to assist the patient at home, and the 4 children will assist the parents financially as needed. Son Vijay and daughter Jahaira live nearby, 1 son & 1 daughter live in
[place].
Son interested in finding a low cost caregiver- provided phone # for the Waiver program.
Patient may benefit from PT/OT Evals---> message to Dr Escalera.
Son agrees with an outpatient HD referral to [facility] and prefers MWF 10am schedule. The drives and can transport the patient to dialysis.
Spoke with Kristen [facility]; initiated referral for outpatient HD at [facility]. Clinical info sent via [employer] and HD Admission Checklist faxed manually.
Plan follow up after PT/OT Evals.
Plan probable home with [facility], possibly with VN.
--- NOTE | 2023-03-19 12:21 | W.PN.HOSP.TC ---
Today's Communication/Plan
-
Monitor vitals
See plan
Monitor pancytopenia
HD per nephrology
PT/OT
Assessment / Plan
Assessment / Plan
Gen-awake, alert
HEENT-NC, AT, anicteric
Neck-supple
CV-reg, no M, +S1/S2
Lungs-clear B/L
Abd-soft, NT, ND, ostomy intact but empty
Ext-no edema
Musculoskeletal-no cyanosis, clubbing
Skin-warm and dry
Neuro-grossly non-focal
Psych-calm, cooperative
Acute hypoxic respiratory failure -due to progressive ESRD, pulmonary edema. now on NC. was at bipap at one point.
ESRD - Left upper extremity AV graft placed on 03/14. Started hemodialysis yesterday, HD again today. Still with volume overload.
Constipation - cw bowel regimen.
Hypocalcemia - monitor
Hyponatremia -monitor
Hyperkalemia -improving; likely due to ESRD. Should improve with dialysis
Acute on chronic anemia -hemoglobin down to 6.7 03/18; now s/p prbc; hgb now 8.1; No obvious bleeding. Transfuse 1 unit of blood today on dialysis. has good iron stores
Chronic thrombocytopenia -suspect secondary to IgG kappa MGUS Monitor for now.
Pancytopenia -suspect secondary to IgG kappa MGUS. If counts do not improve then will need hematology evaluation
Elevated troponin -suspect non-[place] troponin elevation due to critical illness. Troponin has peaked.
Essential hypertension -stable.
GERD
Full code
Family updated at the bedside.
Anticipated Discharge: > 48 hours
Subjective/Interval History
-
Date of Service: March 19, 2023
denies pain
Objective Data
-
Labs:
Laboratory Results
03/19/23
04:18
WBC 4.7 L
Hgb 8.1 L D
Hct 24.5 L
Plt Count 45 L
Sodium 130 L
Potassium 4.1
Chloride 98
Carbon Dioxide 31 H
BUN 22 H
Creatinine 2.9 H
Glucose 97
Calcium 7.3 L
Vital Signs:
Vital Signs
Temp Pulse Resp BP Pulse Ox
98.8 F 77 25 141/60 96
03/19/23 04:21 03/19/23 09:40 03/19/23 06:00 03/19/23 09:40 03/19/23 09:46
I&O
03/18/23 03/19/23 03/20/23
06:59 06:59 06:59
Intake Total 120 / 120 930 / 930
Output Total 450 / 450 250 / 250
Balance -330 / -330 680 / 680
[2023-03-19] MEDS: EPOGEN 10000 UNITS IV (17:41)
[2023-03-19] MEDS: MANNITOL 12.5 GRAMS IV ×2 (17:42→18:36)
[2023-03-19] MEDS: PHOSLO PO (17:54)
[2023-03-19] MEDS: APRESOLINE PO (17:54)
--- NOTE | 2023-03-19 17:56 | PTCARENOTE ---
Rec'd pt this AM. O2 requirement much improved. Down to 8L MF. will continue to wean. OOB to chair with min assistance. tolerating HD at this time. resting comfortably. vital signs stable.
--- NOTE | 2023-03-19 19:18 | W.PN.NEPH.HD ---
Assessment
-
- spoke with patient and son (who acted as teacher home therapy)
- all questions about HD answered
- patient feeling well, no complaints on HD
Progress Note - Hemodialysis
-
Date of Service: March 19, 2023
Duration: 30 minutes and 3 hours
Potassium Bath: 3
Calcium Bath: 2.5
Opti-Dialyzer: 160
Ultrafiltration: Other
Blood Flow: 400
Dialysate Flow: 600
Heparin: none
EPO: 10K
[2023-03-19 19:24] LABS: Hepatitis B Surface Antigen Negative (Negative)
[2023-03-19 19:40] LABS: Hepatitis B Core Ab, Total Negative (Negative); Hepatitis B Surface Antibody Negative; Hepatitis C Antibody Negative (Negative)
[2023-03-19] MEDS: HEPARIN 2000 UNITS INTRACATH (19:48)
[2023-03-19] MEDS: MUCINEX 600 MG PO (20:49)
[2023-03-19] MEDS: NORVASC 10 MG PO (21:36)
[2023-03-20] VITALS (21 sets, daily range): BP systolic 74–166; BP diastolic 40–68; PULSE 79–87; O2SAT 96; BMI 22.8
[2023-03-20 05:56] LABS: % Basophils 0.4 % (0-2); % Eosinophils 1.6 % (0-6); % Immature Granulocytes 0.4 % (0-0.5); % Lymphocytes 22.1 % (20.5-51.1); % Monocytes 11.5 % (1.7-9.3); Absolute Lymphocytes 0.6 10^3/uL (1.2-3.4); Absolute Monocytes 0.3 10^3/uL (0.1-0.6); Absolute Neutrophils 1.6 10^3/uL (1.4-6.5); Hematocrit 23.7 % (37.0-47.0); Mean Corp Hgb Conc. 33.8 g/dL (33.0-37.0); Mean Corpuscular Hgb 28.2 pg (27.0-31.0); Mean Corpuscular Volume 83.5 fL (81.0-99.0); Mean Platelet Volume 9.3 fL (7.4-10.4); Nucleated Red Blood Cells % 0 %; Platelet Count 41 10^3/uL (130-400); Red Blood Cell Count 2.84 10^6/uL (4.20-5.40); White Blood Cell Count 2.5 10^3/uL (4.8-10.8)
[2023-03-20 06:02] LABS: Blood Urea Nitrogen 14 mg/dl (7-17); Calcium 7.4 mg/dl (8.4-10.2); Carbon Dioxide 33 mmol/L (22-30); Chloride 97 mmol/L (98-107); Estimated Creatinine Clearance 20 ml/min; Glucose 77 mg/dl (70-99); Potassium 3.8 mmol/L (3.5-5.1); Sodium 130 mmol/L (135-145); eGFR 26.88
--- NOTE | 2023-03-20 06:09 | PTCARENOTE ---
received patient getting HD- took 2KG off per HD RN. bermudian speaking family at bedside to translate. on 8L 98%- weaned to 6L- 95%. no c/o pain. some c/o cough- asking for Mucinex- covering [employer] notified- orders entered and med given. care ongoing.
[2023-03-20] MEDS: PHOSLO 667 MG PO ×3 (08:33→20:52)
[2023-03-20] MEDS: COLACE 100 MG PO (08:33)
[2023-03-20] MEDS: APRESOLINE 100 MG PO ×3 (08:33→20:54)
[2023-03-20] MEDS: MIRALAX 17 GRAMS PO (08:33)
[2023-03-20] MEDS: CATAPRES 0.100000000000000006 MG PO ×2 (08:33→20:54)
[2023-03-20] MEDS: MUCINEX 600 MG PO ×2 (08:33→20:55)
[2023-03-20] MEDS: COREG 12.5 MG PO ×2 (08:33→20:54)
--- NOTE | 2023-03-20 13:35 | W.PN.HOSP.TC ---
Today's Communication/Plan
-
Monitor vitals
See plan
Catheter by IR
Monitor pancytopenia
PT/OT
HD per nephrology
Assessment / Plan
Assessment / Plan
Gen-awake, alert
HEENT-NC, AT, anicteric
Neck-supple
CV-reg, no M, +S1/S2
Lungs-clear B/L
Abd-soft, NT, ND, ostomy intact but empty
Ext-no edema
Musculoskeletal-no cyanosis, clubbing
Skin-warm and dry
Neuro-grossly non-focal
Psych-calm, cooperative
Acute hypoxic respiratory failure -due to progressive ESRD, pulmonary edema. now on NC. was at bipap at one point.
ESRD - Left upper extremity AV graft placed on 03/14. Started hemodialysis, HD again today. cath 03/20 by IR
Constipation - cw bowel regimen.
Hypocalcemia - monitor
Hyponatremia -monitor
Hyperkalemia -improving; likely due to ESRD. Should improve with dialysis
Acute on chronic anemia -hemoglobin down to 6.7 03/18; now s/p prbc; hgb now 8; No obvious bleeding. s/p 1 unit 03/18. has good iron stores
Chronic thrombocytopenia -suspect secondary to IgG kappa MGUS Monitor for now.
Pancytopenia -suspect secondary to IgG kappa MGUS. If counts do not improve then will need hematology evaluation
Elevated troponin -suspect non-[place] troponin elevation due to critical illness. Troponin has peaked.
Essential hypertension -stable.
GERD
Full code
Family updated at the bedside.
Anticipated Discharge: 24 - 48 hours
Subjective/Interval History
-
Date of Service: March 20, 2023
denies pain
Objective Data
-
Labs:
Laboratory Results
03/20/23
05:09
WBC 2.5 L
Hgb 8.0 L
Hct 23.7 L
Plt Count 41 L
Sodium 130 L
Potassium 3.8
Chloride 97 L
Carbon Dioxide 33 H
BUN 14
Creatinine 2.0 H
Glucose 77
Calcium 7.4 L
Vital Signs:
Vital Signs
Temp Pulse Resp BP Pulse Ox
98.3 F 79 23 166/60 94
03/20/23 13:10 03/20/23 13:10 03/20/23 13:10 03/20/23 13:10 03/20/23 13:10
I&O
03/19/23 03/20/23 03/21/23
06:59 06:59 06:59
Intake Total 930 / 930
Output Total 250 / 250
Balance 680 / 680
--- NOTE | 2023-03-20 13:36 | PTCARENOTE ---
Consent obtained by Dr Ruelas using language line Interpretor Kenna #[id number]
[2023-03-20] MEDS: ANCEF 5 IV (13:46)
--- NOTE | 2023-03-20 14:00 | W.PN.NEPH.PH ---
Today's Communication / Plan
-
TDC today
plan for HD tomorrow
Assessment/Plan
-
Impression
Severe acute on chronic kidney failure.
CKD stage 5 due to underlying renal biopsy-proven nodular
sclerosis and IgA nephropathy.
Chronic metabolic acidosis
Hypertension.
Congestive heart failure in setting of decompensated renal
failure.
GERD.
Plan:
Initiated dialysis and underwent 3 sessions
TDC today as permits
hypocalcemia persists, slightly improved. continue high calcium bath and calcium supplementation
phos low/normal --> no need for phos binders at this time
no need to NaHCO3 tabs on discharge
-
-
Date of Service: March 20, 2023
CC / HPI / ROS
-
Chief Complaint:
new HD start
History of Present Illness:
CKD Stage V 2/2 to nodular sclerosis and IgA nephropathy
Review of Systems:
TDC placement
plan for high calcium bath
Labs
-
Labs:
WBC 2.5 10^3/uL (4.8-10.8) L 03/20/23 05:09
RBC 2.84 10^6/uL (4.20-5.40) L 03/20/23 05:09
Hgb 8.0 g/dL (12.0-16.0) L 03/20/23 05:09
Hct 23.7 % (37.0-47.0) L 03/20/23 05:09
Plt Count 41 10^3/uL (130-400) L 03/20/23 05:09
Sodium 130 mmol/L (135-145) L 03/20/23 05:09
Potassium 3.8 mmol/L (3.5-5.1) 03/20/23 05:09
Chloride 97 mmol/L (98-107) L 03/20/23 05:09
Carbon Dioxide 33 mmol/L (22-30) H 03/20/23 05:09
BUN 14 mg/dl (7-17) 03/20/23 05:09
Creatinine 2.0 mg/dL (0.6-1.0) H 03/20/23 05:09
eGFR 26.88 03/20/23 05:09
Glucose 77 mg/dl (70-99) 03/20/23 05:09
Calcium 7.4 mg/dl (8.4-10.2) L 03/20/23 05:09
Phosphorus 3.7 mg/dl (2.5-4.5) 03/19/23 04:18
Kcf-M-Ehkakcpmiuy Pept > 86371 pg/ml 03/16/23 21:38
Albumin 3.2 g/dl (3.5-5.0) L 03/17/23 04:49
Physical Exam
-
Vital Signs:
Vital Signs
Temp Pulse Resp BP Pulse Ox
98.3 F 79 23 166/60 94
03/20/23 13:10 03/20/23 13:10 03/20/23 13:10 03/20/23 13:10 03/20/23 13:10
Cardiovascular:: Regular rate and rhythm
Respiratory:: Bilateral: CTA
Lung Excursion:: Normal
Abdomen:: Nontender and Soft
Bowel Sounds:: Normal
Extremity Edema:: None: Bilateral:
Ring Catheter: No
--- NOTE | 2023-03-20 14:11 | CM ---
Turkmen speaking patient with Dx ESRD with new HD, pulmonary edema, anemia, pancytopenia. O2 2L. PT recommends HH vs no needs, OT recommends HH.
Spoke with Carroll [facility]; faxed Hep Panel result and HD flowsheets. He offered 4 chair time options on --Sat - informed him son selects T-Th-Sat 11:45am. Await clearance to start outpatient dialysis.
Spoke with patient's son Vijay; son offered 4 chair time options on -Sat - he selects T-Th-Sat 11:45am. Discussed VN for PT/OT and he agrees and has no agency preference. He says that the patient sees Fadumo Turner, Hem Onc and considers
her as PCP. Offered to provide list of [facility] speaking Family Physicians ---> sent to his email at [email or web address].
Referral to Akanksha VIERA.
Plan home with [facility] with [facility].
--- NOTE | 2023-03-20 15:17 | PTCARENOTE ---
1505 Dressing over right tunnelled HD catheter with bloody drainiage. Dressing changes. Minimal oozing from insertion site. Quick clot and tegaderm applied to site.
[2023-03-20] MEDS: TYLENOL PO (16:28)
--- NOTE | 2023-03-20 16:36 | PTCARENOTE ---
Received patient from IR 1530. Patient AAOx3, no c/o pain. Right TDC dressing with small amount of blood leaking down chest. Area cleaned and gauze applied. Patient tolerating clear liquids, family ordering her dinner now. Patient ambulated to
bathroom with supervision. Patient voided small amount of urine in bathroom. Patient c/o left arm tenderness at fistula site, but refuses Tylenol. Left Arm elevated on pillow for comfort.
[2023-03-20] MEDS: TYLENOL 1000 MG PO (20:52)
[2023-03-20] MEDS: NORVASC 10 MG PO (20:54)
[2023-03-20] MEDS: COLACE PO (20:55)
[2023-03-21] VITALS (7 sets, daily range): BP systolic 134–187; BP diastolic 51–78; BMI 23.6
--- NOTE | 2023-03-21 05:36 | PTCARENOTE ---
Patient on 2L overnight, Sp02 WNL. remained at bedside overnight. Tele showing NSR. Reported 5/10 pain to R tunneled cath, medicated with tylenol. Right after swallowing tylenol pt reported she gets high heart rate after taking tylenol. HR
monitored on tele, no events. daughter and family at bedside to assist with translating. Incont. of one episode of moderate amount urine. Colostomy bag intact, burped this morning. LUE fistula ESPERANZA and slightly tender/bruised. Turns self in bed.
Tunneled cath with small amount of old drainage, otherwise dressing intact. Call beltran within reach. Pt calls appropriately.
[2023-03-21 06:48] LABS: Blood Urea Nitrogen 24 mg/dl (7-17); Calcium 7.6 mg/dl (8.4-10.2); Carbon Dioxide 28 mmol/L (22-30); Chloride 95 mmol/L (98-107); Estimated Creatinine Clearance 16 ml/min; Glucose 90 mg/dl (70-99); Potassium 4.4 mmol/L (3.5-5.1); Sodium 129 mmol/L (135-145); eGFR 20.56
[2023-03-21 06:57] LABS: % Basophils 0.8 % (0-2); % Eosinophils 2.4 % (0-6); % Monocytes 11.7 % (1.7-9.3); % Neutrophils 62.1 % (42.2-75.2); Absolute Eosinophils 0.1 10^3/uL (0-0.7); Absolute Lymphocytes 0.6 10^3/uL (1.2-3.4); Absolute Monocytes 0.3 10^3/uL (0.1-0.6); Absolute Neutrophils 1.5 10^3/uL (1.4-6.5); Hemoglobin 8.3 g/dL (12.0-16.0); Mean Corp Hgb Conc. 34.6 g/dL (33.0-37.0); Mean Corpuscular Hgb 28.5 pg (27.0-31.0); Mean Corpuscular Volume 82.5 fL (81.0-99.0); Mean Platelet Volume 9.5 fL (7.4-10.4); Nucleated Red Blood Cells % 0 %; Platelet Count 56 10^3/uL (130-400); Red Blood Cell Count 2.91 10^6/uL (4.20-5.40); Red Cell Dist. Width 13.9 % (11.5-14.5); White Blood Cell Count 2.5 10^3/uL (4.8-10.8)
[2023-03-21] MEDS: MUCINEX 600 MG PO ×2 (08:25→21:23)
[2023-03-21] MEDS: CATAPRES 0.100000000000000006 MG PO ×2 (08:25→21:11)
[2023-03-21] MEDS: PHOSLO 667 MG PO ×2 (08:25→21:30)
[2023-03-21] MEDS: COREG 12.5 MG PO (08:25)
[2023-03-21] MEDS: COLACE 100 MG PO (08:26)
[2023-03-21] MEDS: APRESOLINE 100 MG PO ×2 (08:29→21:25)
[2023-03-21] MEDS: MIRALAX 17 GRAMS PO (08:43)
--- NOTE | 2023-03-21 10:14 | VNURNOTE ---
Home Health Liaison met with patient and family at 1530 03/20 to discuss [facility] nurse/therapy, visits, schedule and homebound status. Granddaughter is able to translate and family is agreeable and understands that visits at home will be 2-3 x per week
to assess and teach medical management.
[facility] brochure provided with contact information. Family is aware that [facility] will contact them for start of care in 1-2 days after discharge from .
Call to patient's son Vijay now to discuss above and he is understanding the above as well as the referral pending acceptance of Dr Fadumo Turner.
Son is aware that he may have to find a PCP if Dr Fadumo Turner does not agree to signing home health orders.
[facility] referral completed in [facility].
--- NOTE | 2023-03-21 12:26 | PTCARENOTE ---
Pt rec'd from previous RN at 0645, pleasant and cooperative, kyrgyz speaking, at bedside to translate. Pt is for HD at 16:00 today, Right chest was tunneled hd cath with scant drainage (not new), left arm ecchymotic with radial and brachial
incisions approximated with surgical glue present, left upper arm fistula +bruit and thrill. Meds and assessment as documented, pt with room 320 assigned, now clean at time of this writing. Will call report to floor and transport pt when her
arrives back to bedside as per her request.
--- NOTE | 2023-03-21 12:38 | PTCARENOTE ---
Report called to 3rd floor LATA Bell will call for transport to [facility].
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
--- NOTE | 2023-03-21 13:42 | VNURNOTE ---
Message left for son today that patient will need to have PCP and be active prior to having [facility].
[facility] contact number provided and message left for him to contact agency after patient has been set up with PCP.
--- NOTE | 2023-03-21 14:00 | W.PN.HOSP.TC ---
Today's Communication/Plan
-
Monitor vital signs and see plan
HD per nephrology
Wean oxygen as tolerated
home o2 eval in am
monitor pancytopenia
Assessment / Plan
Assessment / Plan
Gen-awake, alert
HEENT-NC, AT, anicteric
Neck-supple
CV-reg, no M, +S1/S2
Lungs-clear B/L
Abd-soft, NT, ND, ostomy intact but empty
Ext-no edema
Musculoskeletal-no cyanosis, clubbing
Skin-warm and dry
Neuro-grossly non-focal
Psych-calm, cooperative
Acute hypoxic respiratory failure -due to progressive ESRD, pulmonary edema. now on NC. was at bipap at one point.
ESRD - Left upper extremity AV graft placed on 03/14. Started hemodialysis, HD per nephro. s/p HD cath 03/20 by IR. ongoing outpatient HD set up
Constipation - cw bowel regimen.
Hypocalcemia - monitor
Hyponatremia -monitor
Hyperkalemia -improving; likely due to ESRD. Should improve with dialysis
Acute on chronic anemia -hemoglobin down to 6.7 03/18; now s/p prbc; hgb now 8.3; No obvious bleeding. s/p 1 unit 03/18. has good iron stores
Chronic thrombocytopenia -suspect secondary to IgG kappa MGUS Monitor for now.
Pancytopenia -suspect secondary to IgG kappa MGUS. If counts do not improve then will need hematology evaluation
Elevated troponin -suspect non-[place] troponin elevation due to critical illness. Troponin has peaked.
Essential hypertension -increase coreg to 25mg BID
GERD
Full code
Anticipated Discharge: Within 24 hours
Subjective/Interval History
-
Date of Service: March 21, 2023
denies pain
Objective Data
-
Labs:
Laboratory Results
03/21/23 03/21/23
05:37 06:35
WBC Cancelled 2.5 L
Hgb Cancelled 8.3 L
Hct Cancelled 24.0 L
Plt Count Cancelled 56 L D
Sodium 129 L
Potassium 4.4
Chloride 95 L
Carbon Dioxide 28
BUN 24 H
Creatinine 2.5 H
Glucose 90
Calcium 7.6 L
Vital Signs:
Vital Signs
Temp Pulse Resp BP Pulse Ox
98.3 F 78 21 158/62 97
03/21/23 11:34 03/21/23 12:00 03/21/23 12:00 03/21/23 12:00 03/21/23 10:00
I&O
03/20/23 03/21/23 03/22/23
06:59 06:59 06:59
Intake Total 480 / 480
Output Total 400 / 400
Balance 80 / 80
[2023-03-21] MEDS: APRESOLINE PO (16:41)
[2023-03-21] MEDS: PHOSLO PO (17:54)
[2023-03-21] MEDS: RETACRIT 6000 UNITS IV (18:01)
--- NOTE | 2023-03-21 18:07 | W.PN.NEPH.HD ---
Assessment
-
patient seen on HD
sbp 164 at 2kg u/f
check CXR in am to follow up resolution of CHF
Progress Note - Hemodialysis
-
Date of Service: March 21, 2023
Duration: 3 hours
Potassium Bath: 3
Calcium Bath: 2.5
Opti-Dialyzer: 160
Ultrafiltration: Other (2kg)
Blood Flow: 350
Dialysate Flow: 600
Heparin: none
EPO: 6K
[2023-03-21] MEDS: COLACE PO (21:07)
[2023-03-21] MEDS: COREG 25 MG PO (21:16)
[2023-03-21] MEDS: NORVASC 10 MG PO (21:28)
[2023-03-22] VITALS (7 sets, daily range): BP systolic 143–176; BP diastolic 56–73; PULSE 70; O2SAT 99; BMI 23.0
[2023-03-22 06:38] LABS: % Basophils 0.4 % (0-2); % Eosinophils 1.7 % (0-6); % Immature Granulocytes 0.9 % (0-0.5); % Lymphocytes 25.4 % (20.5-51.1); % Monocytes 13.4 % (1.7-9.3); % Neutrophils 58.2 % (42.2-75.2); Absolute Lymphocytes 0.6 10^3/uL (1.2-3.4); Absolute Monocytes 0.3 10^3/uL (0.1-0.6); Absolute Neutrophils 1.4 10^3/uL (1.4-6.5); Hematocrit 23.4 % (37.0-47.0); Hemoglobin 8.1 g/dL (12.0-16.0); Mean Corp Hgb Conc. 34.6 g/dL (33.0-37.0); Mean Corpuscular Hgb 28.2 pg (27.0-31.0); Mean Corpuscular Volume 81.5 fL (81.0-99.0); Mean Platelet Volume 8.7 fL (7.4-10.4); Nucleated Red Blood Cells % 0 %; Platelet Count 57 10^3/uL (130-400); Red Blood Cell Count 2.87 10^6/uL (4.20-5.40); Red Cell Dist. Width 14.2 % (11.5-14.5)
[2023-03-22 06:53] LABS: White Blood Cell Count 2.3 10^3/uL (4.8-10.8)
[2023-03-22 07:21] LABS: Blood Urea Nitrogen 12 mg/dl (7-17); Calcium 8.1 mg/dl (8.4-10.2); Carbon Dioxide 31 mmol/L (22-30); Chloride 95 mmol/L (98-107); Estimated Creatinine Clearance 21 ml/min; Glucose 94 mg/dl (70-99); Potassium 3.4 mmol/L (3.5-5.1); Sodium 131 mmol/L (135-145); eGFR 28.58
[2023-03-22] MEDS: PHOSLO 667 MG PO ×3 (07:49→21:21)
[2023-03-22] MEDS: MIRALAX 17 GRAMS PO (07:49)
[2023-03-22] MEDS: COLACE PO ×3 (07:49→21:02)
[2023-03-22] MEDS: APRESOLINE 100 MG PO ×3 (07:50→21:15)
[2023-03-22] MEDS: MUCINEX 600 MG PO ×2 (07:50→21:12)
[2023-03-22] MEDS: CATAPRES 0.100000000000000006 MG PO ×2 (07:50→21:04)
[2023-03-22] MEDS: COREG 25 MG PO ×2 (07:50→21:10)
--- NOTE | 2023-03-22 09:43 | CM ---
Addendum entered by MOISES Walters 03/22/23 15:15:
Provided [facility] paperwork to patient's son which included chair times, start date, days and location.
Original Note:
Reviewed chart, spoke with previous CM on case. Spoke with Carroll from [facility] who stated that he needs the following faxed over to him: updated labs, Permanent access paperwork/catheter placement and AV Fistula Info with paperwork where placed and
by whom. Carroll stated to fax this information over to [phone].
Plan: Case management will continue to follow and assist with discharge planning. Home with outpatient dialysis through [facility].
--- NOTE | 2023-03-22 11:44 | W.PN.HOSP.TC ---
Today's Communication/Plan
-
Monitor vital signs see plan
Wean oxygen as tolerated
Per adult protective caseworker earliest patient can have outpatient dialysis is next Sunday
HD per nephrology
Assessment / Plan
Assessment / Plan
Gen-awake, alert
HEENT-NC, AT, anicteric
Neck-supple
CV-reg, no M, +S1/S2
Lungs-clear B/L
Abd-soft, NT, ND, ostomy intact but empty
Ext-no edema
Musculoskeletal-no cyanosis, clubbing
Skin-warm and dry
Neuro-grossly non-focal
Psych-calm, cooperative
Acute hypoxic respiratory failure -due to progressive ESRD, pulmonary edema. now on NC. was at bipap at one point. wean o2 as tolerated; check home o2
ESRD - Left upper extremity AV graft placed on 03/14. Started hemodialysis, HD per nephro. s/p HD cath 03/20 by IR. ongoing outpatient HD set up, per CM earliest she can get outpatient HD is next Sunday03/27/23
Constipation - cw bowel regimen.
Hypocalcemia - monitor
Hyponatremia -monitor
Hyperkalemia -improving; likely due to ESRD. Should improve with dialysis
Acute on chronic anemia -hemoglobin down to 6.7 03/18; now s/p prbc; hgb now 8.1; No obvious bleeding. s/p 1 unit 03/18. has good iron stores
Chronic thrombocytopenia -suspect secondary to IgG kappa MGUS Monitor for now.
Pancytopenia -suspect secondary to IgG kappa MGUS. If counts do not improve then will need hematology evaluation
Elevated troponin -suspect non-[place] troponin elevation due to critical illness. Troponin has peaked.
Essential hypertension -increase coreg to 25mg BID
GERD
Full code
Family updated at bedside
Anticipated Discharge: > 48 hours
Subjective/Interval History
-
Date of Service: March 22, 2023
denies pain
Objective Data
-
Labs:
Laboratory Results
03/22/23
06:09
WBC 2.3 L*
Hgb 8.1 L
Hct 23.4 L
Plt Count 57 L
Sodium 131 L
Potassium 3.4 L
Chloride 95 L
Carbon Dioxide 31 H
BUN 12
Creatinine 1.9 H
Glucose 94
Calcium 8.1 L
Vital Signs:
Vital Signs
Temp Pulse Resp BP Pulse Ox
98.4 F 68 16 153/58 94
03/22/23 11:41 03/22/23 11:41 03/22/23 11:41 03/22/23 11:41 03/22/23 11:41
I&O
03/21/23 03/22/23 03/23/23
06:59 06:59 06:59
Intake Total 1060 / 1060
Output Total 400 / 400
Balance 660 / 660
--- NOTE | 2023-03-22 14:48 | W.PN.NEPH.PH ---
Today's Communication / Plan
-
Dialysis tomorrow
Continue to reduce dry weight
Assessment/Plan
-
Impression
Severe acute on chronic kidney failure.
CKD stage 5 due to underlying renal biopsy-proven nodular
sclerosis and IgA nephropathy.
Chronic metabolic acidosis
Hypertension.
Congestive heart failure in setting of decompensated renal
failure.
GERD.
Plan:
HD tomorrow, will continue to lower dry weight
Reviewed chest x-ray noted improvement of pulmonary edema
hypocalcemia persists, slightly improved. continue high calcium bath and calcium supplementation
phos low/normal --> no need for phos binders at this time
-
-
Date of Service: March 22, 2023
CC / HPI / ROS
-
Chief Complaint:
new HD start
History of Present Illness:
CKD Stage V 2/2 to nodular sclerosis and IgA nephropathy
Review of Systems:
TDC placement
Still requires oxygen
Weights down
Labs
-
Labs:
WBC 2.3 10^3/uL (4.8-10.8) L* 03/22/23 06:09
RBC 2.87 10^6/uL (4.20-5.40) L 03/22/23 06:09
Hgb 8.1 g/dL (12.0-16.0) L 03/22/23 06:09
Hct 23.4 % (37.0-47.0) L 03/22/23 06:09
Plt Count 57 10^3/uL (130-400) L 03/22/23 06:09
Sodium 131 mmol/L (135-145) L 03/22/23 06:09
Potassium 3.4 mmol/L (3.5-5.1) L 03/22/23 06:09
Chloride 95 mmol/L (98-107) L 03/22/23 06:09
Carbon Dioxide 31 mmol/L (22-30) H 03/22/23 06:09
BUN 12 mg/dl (7-17) 03/22/23 06:09
Creatinine 1.9 mg/dL (0.6-1.0) H 03/22/23 06:09
eGFR 28.58 03/22/23 06:09
Glucose 94 mg/dl (70-99) 03/22/23 06:09
Calcium 8.1 mg/dl (8.4-10.2) L 03/22/23 06:09
Phosphorus 3.7 mg/dl (2.5-4.5) 03/19/23 04:18
Hbm-L-Tavpwxxcwor Pept > 07150 pg/ml 03/16/23 21:38
Albumin 3.2 g/dl (3.5-5.0) L 03/17/23 04:49
Physical Exam
-
Vital Signs:
Vital Signs
Temp Pulse Resp BP Pulse Ox
98.4 F 68 16 153/58 94
03/22/23 11:41 03/22/23 11:41 03/22/23 11:41 03/22/23 11:41 03/22/23 11:41
Cardiovascular:: Regular rate and rhythm
[2023-03-22] MEDS: NORVASC 10 MG PO (21:18)
[2023-03-22] MEDS: PROTONIX 40 MG PO (21:51)
[2023-03-23 02:46] VITALS: BMI 22.8
[2023-03-23 02:48] VITALS: BP 155/60
[2023-03-23 06:41] LABS: % Basophils 0.4 % (0-2); % Eosinophils 1.9 % (0-6); % Lymphocytes 30.5 % (20.5-51.1); % Monocytes 13.5 % (1.7-9.3); % Neutrophils 53.7 % (42.2-75.2); Absolute Eosinophils 0.1 10^3/uL (0-0.7); Absolute Lymphocytes 0.8 10^3/uL (1.2-3.4); Absolute Monocytes 0.4 10^3/uL (0.1-0.6); Absolute Neutrophils 1.4 10^3/uL (1.4-6.5); Hemoglobin 8.1 g/dL (12.0-16.0); Mean Corp Hgb Conc. 35.2 g/dL (33.0-37.0); Mean Corpuscular Hgb 28.7 pg (27.0-31.0); Mean Corpuscular Volume 81.6 fL (81.0-99.0); Mean Platelet Volume 9.3 fL (7.4-10.4); Nucleated Red Blood Cells % 0 %; Platelet Count 63 10^3/uL (130-400); Red Blood Cell Count 2.82 10^6/uL (4.20-5.40); Red Cell Dist. Width 14.2 % (11.5-14.5); White Blood Cell Count 2.7 10^3/uL (4.8-10.8)
[2023-03-23 07:00] VITALS: BP 111/69
[2023-03-23 07:14] LABS: Blood Urea Nitrogen 21 mg/dl (7-17); Carbon Dioxide 28 mmol/L (22-30); Chloride 95 mmol/L (98-107); Estimated Creatinine Clearance 15 ml/min; Glucose 94 mg/dl (70-99); Potassium 3.6 mmol/L (3.5-5.1); Sodium 132 mmol/L (135-145); eGFR 19.62
[2023-03-23] MEDS: CATAPRES 0.100000000000000006 MG PO ×2 (08:04→20:16)
[2023-03-23] MEDS: PHOSLO 667 MG PO ×3 (08:04→21:44)
[2023-03-23] MEDS: PROTONIX 40 MG PO (08:04)
[2023-03-23] MEDS: APRESOLINE 100 MG PO ×3 (08:04→21:44)
[2023-03-23] MEDS: COREG 25 MG PO ×2 (08:05→20:17)
[2023-03-23] MEDS: COLACE PO ×2 (08:05→20:18)
[2023-03-23] MEDS: MIRALAX PO (08:05)
[2023-03-23] MEDS: MUCINEX 600 MG PO ×2 (08:07→20:16)
[2023-03-23 11:00] VITALS: BP 142/52; BP 163/82
--- NOTE | 2023-03-23 11:12 | PTCARENOTE ---
Nika pt navigator present at bedside, was able to facilitate education and assessment of pt. spouse present at bedside. pt is content with edu and plan of care.
--- NOTE | 2023-03-23 12:07 | W.PN.HOSP.TC ---
Today's Communication/Plan
-
Monitor vital signs and see plan
HD per nephrology
Will need to find if outpatient dialysis is set up
Now off o2
Assessment / Plan
Assessment / Plan
Gen-awake, alert
HEENT-NC, AT, anicteric
Neck-supple
CV-reg, no M, +S1/S2
Lungs-clear B/L
Abd-soft, NT, ND, ostomy intact but empty
Ext-no edema
Musculoskeletal-no cyanosis, clubbing
Skin-warm and dry
Neuro-grossly non-focal
Psych-calm, cooperative
Acute hypoxic respiratory failure -due to progressive ESRD, pulmonary edema. now on NC. was at bipap at one point. wean o2 as tolerated; check home o2, patient running did not qualify for home O2. Now off oxygen
X-ray 03/22 with significant improvement
ESRD - Left upper extremity AV graft placed on 03/14. Started hemodialysis, HD per nephro. s/p HD cath 03/20 by IR. ongoing outpatient HD set up, per earliest she can get outpatient HD is next Sunday03/27/23
Constipation - cw bowel regimen.
Hypocalcemia - monitor
Hyponatremia -monitor
Hyperkalemia -improving; likely due to ESRD. Should improve with dialysis
Acute on chronic anemia -hemoglobin down to 6.7 03/18; now s/p prbc; hgb now 8.1; No obvious bleeding. s/p 1 unit 03/18. has good iron stores
Chronic thrombocytopenia -suspect secondary to IgG kappa MGUS Monitor for now.
Pancytopenia -suspect secondary to IgG kappa MGUS. If counts do not improve then will need hematology evaluation
Elevated troponin -suspect non-[place] troponin elevation due to critical illness. Troponin has peaked.
Essential hypertension -increase coreg to 25mg BID
GERD
Full code
Family updated at bedside
Anticipated Discharge: 24 - 48 hours
Subjective/Interval History
-
Date of Service: March 23, 2023
denies pain
Objective Data
-
Labs:
Laboratory Results
03/23/23
06:22
WBC 2.7 L
Hgb 8.1 L
Hct 23.0 L
Plt Count 63 L
Sodium 132 L
Potassium 3.6
Chloride 95 L
Carbon Dioxide 28
BUN 21 H
Creatinine 2.6 H
Glucose 94
Calcium 8.0 L
Vital Signs:
Vital Signs
Temp Pulse Resp BP Pulse Ox
98.5 F 80 16 142/52 96
03/23/23 11:00 03/23/23 11:00 03/23/23 11:00 03/23/23 11:00 03/23/23 11:00
I&O
03/22/23 03/23/23 03/24/23
06:59 06:59 06:59
Intake Total 1060 / 1060 960 / 960
Output Total 400 / 400
Balance 660 / 660 960 / 960
--- NOTE | 2023-03-23 12:52 | CM ---
Received update from patient's son that he needed information on BCT. Supplied him with information regarding how to get set up with services. He was appreciative. CM contact information provided.
Plan: Case management will continue to follow and assist with discharge planning. Home when stable with OP dialysis.
[2023-03-23] MEDS: MANNITOL 12.5 GRAMS IV (13:10)
[2023-03-23] MEDS: RETACRIT 8000 UNITS IV (13:18)
--- NOTE | 2023-03-23 14:55 | W.PN.NEPH.HD ---
Assessment
-
TDC in place
tolerating HD well
placed at [facility] in [facility]
no complaints
Progress Note - Hemodialysis
-
Date of Service: March 23, 2023
Duration: 30 minutes and 3 hours
Potassium Bath: 3
Calcium Bath: 2.5
Opti-Dialyzer: 160
Ultrafiltration: Other
Blood Flow: 400
Dialysate Flow: 600
EPO: 8K
[2023-03-23] MEDS: HEPARIN 2200 UNITS INTRACATH (15:38)
[2023-03-23 19:00] VITALS: BP 161/79
--- NOTE | 2023-03-23 19:33 | PTCARENOTE ---
Pt requested Vanesa for cough related to allergies. ROAD DRIVER made aware, new order provided, see MAR. Will continue to monitor.
[2023-03-23] MEDS: ZYRTEC 10 MG PO (20:17)
[2023-03-23] MEDS: NORVASC 10 MG PO (21:45)
[2023-03-23 22:53] VITALS: BP 150/58
[2023-03-23 23:00] VITALS: BP 176/78
[2023-03-24 02:38] VITALS: BP 181/65
[2023-03-24 02:39] VITALS: BP 148/58
[2023-03-24 06:00] VITALS: BMI 22.9
[2023-03-24 08:18] VITALS: BP 116/69
[2023-03-24] MEDS: PHOSLO 667 MG PO (08:26)
[2023-03-24] MEDS: COREG 25 MG PO ×2 (08:26→19:37)
[2023-03-24] MEDS: COLACE 100 MG PO (08:26)
[2023-03-24] MEDS: CATAPRES 0.100000000000000006 MG PO ×2 (08:27→19:35)
[2023-03-24] MEDS: APRESOLINE 100 MG PO (08:27)
[2023-03-24] MEDS: MIRALAX 17 GRAMS PO (08:27)
[2023-03-24] MEDS: MUCINEX 600 MG PO ×2 (08:27→19:36)
[2023-03-24 08:31] LABS: % Basophils 0.8 % (0-2); % Eosinophils 1.1 % (0-6); % Immature Granulocytes 0.4 % (0-0.5); % Monocytes 15.2 % (1.7-9.3); % Neutrophils 54.5 % (42.2-75.2); Absolute Lymphocytes 0.7 10^3/uL (1.2-3.4); Absolute Monocytes 0.4 10^3/uL (0.1-0.6); Absolute Neutrophils 1.4 10^3/uL (1.4-6.5); Hematocrit 22.8 % (37.0-47.0); Hemoglobin 8.2 g/dL (12.0-16.0); Mean Corpuscular Hgb 29.9 pg (27.0-31.0); Mean Corpuscular Volume 83.2 fL (81.0-99.0); Mean Platelet Volume 9.1 fL (7.4-10.4); Nucleated Red Blood Cells % 0 %; Platelet Count 59 10^3/uL (130-400); Red Blood Cell Count 2.74 10^6/uL (4.20-5.40); Red Cell Dist. Width 14.6 % (11.5-14.5); White Blood Cell Count 2.6 10^3/uL (4.8-10.8)
[2023-03-24 08:32] LABS: Blood Urea Nitrogen 12 mg/dl (7-17); Calcium 7.6 mg/dl (8.4-10.2); Carbon Dioxide 33 mmol/L (22-30); Chloride 96 mmol/L (98-107); Estimated Creatinine Clearance 19 ml/min; Glucose 86 mg/dl (70-99); Potassium 3.4 mmol/L (3.5-5.1); Sodium 130 mmol/L (135-145); eGFR 25.35
--- NOTE | 2023-03-24 10:39 | W.PN.HOSP.TC ---
Addendum entered and electronically signed by Ty Escalera MD 03/24/23 12:29:
Hemodialysis today and then discharge
Time of discharge 37 minutes
Original Note:
Today's Communication/Plan
-
monitor vitals
see plan
HD per nephrology
discussed with nephrology; dispo pending when will she be getting next HD inpatient session and resume her outpatient HD on sunday
Assessment / Plan
Assessment / Plan
Gen-awake, alert
HEENT-NC, AT, anicteric
Neck-supple
CV-reg, no M, +S1/S2
Lungs-clear B/L
Abd-soft, NT, ND, ostomy intact but empty
Ext-no edema
Musculoskeletal-no cyanosis, clubbing
Skin-warm and dry
Neuro-grossly non-focal
Psych-calm, cooperative
Acute hypoxic respiratory failure -due to progressive ESRD, pulmonary edema. now on NC. was at bipap at one point. wean o2 as tolerated; check home o2, patient running did not qualify for home O2. Now off oxygen
X-ray 03/22 with significant improvement
ESRD - Left upper extremity AV graft placed on 03/14. Started hemodialysis, HD per nephro. s/p HD cath 03/20 by IR. ongoing outpatient HD set up, per CM earliest she can get outpatient HD is next Sunday03/27/23. last HD 03/23. Spoke with nephrology
who will decide on dispo plan as when patient will get inpatient HD so can be discharged.
Constipation - cw bowel regimen.
Hypocalcemia - monitor
Hyponatremia -monitor
Hyperkalemia -improving; likely due to ESRD. Should improve with dialysis
Acute on chronic anemia -hemoglobin down to 6.7 03/18; now s/p prbc; hgb now 8.3; No obvious bleeding. s/p 1 unit 03/18. has good iron stores
Chronic thrombocytopenia -suspect secondary to IgG kappa MGUS Monitor for now.
Pancytopenia -suspect secondary to IgG kappa MGUS. If counts do not improve then will need hematology evaluation
Elevated troponin -suspect non-[place] troponin elevation due to critical illness. Troponin has peaked.
Essential hypertension -increase coreg to 25mg BID
GERD
Full code
Family updated at bedside
Anticipated Discharge: Within 24 hours
Subjective/Interval History
-
Date of Service: March 24, 2023
denies pain
Objective Data
-
Labs:
Laboratory Results
03/24/23
07:47
WBC 2.6 L
Hgb 8.2 L
Hct 22.8 L
Plt Count 59 L
Sodium 130 L
Potassium 3.4 L
Chloride 96 L
Carbon Dioxide 33 H
BUN 12
Creatinine 2.1 H
Glucose 86
Calcium 7.6 L
Vital Signs:
Vital Signs
Temp Pulse Resp BP Pulse Ox
98.6 F 84 18 116/69 94
03/24/23 08:18 03/24/23 08:18 03/24/23 08:18 03/24/23 08:18 03/24/23 08:18
I&O
03/23/23 03/24/23 03/25/23
06:59 06:59 06:59
Intake Total 960 / 960 1020 / 1020
Balance 960 / 960 1020 / 1020
--- NOTE | 2023-03-24 11:32 | W.PN.NEPH.HD ---
Assessment
-
- planned for HD today (short session as just recieved yesterday)
- discharge and then plan for future HD at [facility] ([facility] schedule)
Progress Note - Hemodialysis
-
Date of Service: March 24, 2023
Duration: 30 minutes and 2 hours
Potassium Bath: 3
Calcium Bath: 2.5
Opti-Dialyzer: 160
Ultrafiltration: Other
Blood Flow: 400
Dialysate Flow: 600
Heparin: none
EPO: 4K
[2023-03-24 11:55] VITALS: BP 154/53
--- NOTE | 2023-03-24 12:28 | W.DCSUMMARY ---
Discharge Summary
Discharge Data
Date of Admission: 03/16/23
Date of Discharge: 03/24/23
-
Pending Results: No
Hospital Course
67-year-old female with past medical history of MGUS, pancytopenia, chronic anemia, end-stage renal disease came to the hospital with acute hypoxic respiratory failure secondary to progressive end-stage renal disease along with pulmonary edema.
Patient also had left upper extremity AV graft which was placed on 03/14/2023. Patient was eventually started on hemodialysis on this hospitalization. She also hemodialysis catheter on 03/20/2023 by interventional radiology. Patient required
multiple sessions of hemodialysis while she was hospitalized which improved her symptoms. Repeat chest x-ray was done on 03/22 which showed significant improvement with her pulmonary edema. She was initially on oxygen which was later weaned off.
laundromat manager was able to get her placed outpatient on hemodialysis and her first session was scheduled to be on 03/27/2023. While she was dialyzed on 03/24/2023, and since she was feeling better she was then discharged home with instructions
to follow-up with all her physicians outpatient.
Discharge Plan
-
Patient Disposition: Home (Routine Discharge)
Discharge Diagnosis/Procedures: Acute hypoxic respiratory failure due to progressive end-stage renal disease
Pulmonary edema
End-stage renal disease now on hemodialysis
Hypocalcemia
Hyponatremia
Hyperkalemia
Acute on chronic anemia
Chronic thrombocytopenia
Condition: Fair
Diet: Restrict fluids to 48 oz and Other diet
Additional Diets: 2 g potassium
Activity: As tolerated
Driving Restrictions: Not until seen by your Dr
Bathing Restrictions: None
Referrals:
Libby Martinez MD [Active] -
UNKNOWN - PT DOES,NOT KNOW [Family Provider] - in less than 1 week
Prescriptions:
New
carvedilol 12.5 mg Tablet
25 mg PO BID Qty: 120 0RF
polyethylene glycol 3350 [HealthyLax] 17 gram Powder In Packet
17 g PO DAILY Qty: 3 0RF
docusate sodium 100 mg Capsule
100 mg PO BID Qty: 30 0RF
Continued
sodium bicarbonate 650 mg Tablet
1,300 mg PO TID
hydralazine 50 mg tablet
100 mg PO TID
omeprazole 20 mg Tablet,Delayed Release (Dr/Ec)
20 mg PO DAILYPRN PRN (Reason: heartburn)
amlodipine 10 MG tablet
10 mg PO HS
clonidine HCl 0.1 mg Tablet
0.1 mg PO BID
acetaminophen 500 mg Tablet
1,000 mg PO Q6H PRN (Reason: mild pain/fever)
calcium acetate 667 mg Tablet
667 mg PO TID
Guaifenesin DM
20 ml PO BIDPRN PRN (Reason: cough)
Discontinued
carvedilol 12.5 mg tablet
12.5 mg PO BID
furosemide 20 MG tablet
20 mg PO DAILY
Discharge Orders:
Discharge Patient (As Directed); Ordered 03/24/23
Ordered By: Ty Escalera
Discharge Date and Time
Discharge Date/Time: 03/24/23 20:20
[2023-03-24] MEDS: APRESOLINE PO (16:11)
[2023-03-24] MEDS: PHOSLO PO (16:12)
[2023-03-24] MEDS: RETACRIT 4000 UNITS IV (17:18)
--- NOTE | 2023-03-24 18:12 | PTCARENOTE ---
Pt scheduled for HD until 7 pm ness. Spoke with Charge and they are aware of dc around change of shift. Family is aware that the dc will be later in the evening.
[2023-03-24] MEDS: COLACE PO (19:38)
[2023-03-24] MEDS: PREVNAR 20 0.5 ML IM (19:38)
--- NOTE | 2023-03-24 20:25 | PTCARENOTE ---
Report received from dayshift RN. Discharge instruction provided to patient. Family at bedside. Approximately 30 minutes spent in room. PCT transported pt to lobby via wheelchair.
== END 2023-03-24 20:20 | disposition home or self-care (01) | DRG 673 ==
LOC: 3 WEST ACU 23:10
PROVIDERS: Hospitalist; Radiology Vascular & Interventional Radiology; Student in an Organized Health Care Education/Training Program; ADMITTING PHYSICIAN Hospitalist; ATTENDING PHYSICIAN Internal Medicine; CONSULT PHYSICIAN Specialist; EMERGENCY PHYSICIAN Emergency Medicine
PROC: 5A09457 Assistance with Respiratory Ventilation, 24-96 Consecutive Hours, Continuous Positive Airway Pressure (ICD-10-PCS; 2023-03-16)
PROC: 5A1D70Z Performance of Urinary Filtration, Intermittent, Less than 6 Hours Per Day (ICD-10-PCS; 2023-03-17)
PROC: 05HM33Z Insertion of Infusion Device into Right Internal Jugular Vein, Percutaneous Approach (ICD-10-PCS; 2023-03-17)
PROC: 30233N1 Transfusion of Nonautologous Red Blood Cells into Peripheral Vein, Percutaneous Approach (ICD-10-PCS; 2023-03-18)
PROC: 0JH63XZ Insertion of Tunneled Vascular Access Device into Chest Subcutaneous Tissue and Fascia, Percutaneous Approach (ICD-10-PCS; 2023-03-20)
PROC: 05PY33Z Removal of Infusion Device from Upper Vein, Percutaneous Approach (ICD-10-PCS; 2023-03-20)
PROC: 3E0234Z Introduction of Serum, Toxoid and Vaccine into Muscle, Percutaneous Approach (ICD-10-PCS; 2023-03-24)
DX: N18.6 End stage renal disease (principal); J96.01 Acute respiratory failure with hypoxia; I13.2 Hypertensive heart and chronic kidney disease with heart failure and with stage 5 chronic kidney disease, or end stage renal disease; N25.81 Secondary hyperparathyroidism of renal origin; E87.22 Chronic metabolic acidosis; E87.1 Hypo-osmolality and hyponatremia; D61.818 Other pancytopenia; I5A Non-ischemic myocardial injury (non-traumatic); N17.9 Acute kidney failure, unspecified; K21.9 Gastro-esophageal reflux disease without esophagitis; Z93.3 Colostomy status; E87.5 Hyperkalemia; E83.51 Hypocalcemia; E83.39 Other disorders of phosphorus metabolism; D63.1 Anemia in chronic kidney disease; D69.6 Thrombocytopenia, unspecified; I50.9 Heart failure, unspecified; Z11.52 Encounter for screening for COVID-19; Z23 Encounter for immunization; N26.9 Renal sclerosis, unspecified; D47.2 Monoclonal gammopathy; Z99.2 Dependence on renal dialysis; K59.00 Constipation, unspecified
CPT/HCPCS: 36556; 36558; 71045; 71046; 74018; 76937; 77001; 80048; 80053; 82728; 83540; 83550; 83735; 83880; 84100; 84484; 85025; 86704; 86706; 86803; 86850; 86900; 86901; 86920; 87340; 87502; 87811; 93005; 94660; 96374; 97116; 97163; 97166; 99152; 99153; 99291; C1750; C1752; G0257; J0885; P9016; P9047; Q5106

== ENCOUNTER → 2023-04-18 08:46 | Outpatient (REF) | payer MEDICAID, OTHER, SELFPAY | LOC: RAD 08:46 | PROVIDERS: ATTENDING PHYSICIAN Physician Assistant; FAMILY PHYSICIAN Family Medicine | DX: I77.0 Arteriovenous fistula, acquired (principal) | CPT/HCPCS: 93990 ==

== ENCOUNTER → 2023-05-16 09:20 | Outpatient (REF) | payer MEDICAID, OTHER, SELFPAY ==
[2023-05-16 09:31] LABS: % Basophils 0.7 % (0-2); % Eosinophils 1.6 % (0-6); % Monocytes 9.8 % (1.7-9.3); % Neutrophils 64.9 % (42.2-75.2); Absolute Eosinophils 0.1 10^3/uL (0-0.7); Absolute Lymphocytes 0.7 10^3/uL (1.2-3.4); Absolute Monocytes 0.3 10^3/uL (0.1-0.6); Hematocrit 30.8 % (37.0-47.0); Hemoglobin 9.9 g/dL (12.0-16.0); Mean Corp Hgb Conc. 32.1 g/dL (33.0-37.0); Mean Corpuscular Hgb 29.7 pg (27.0-31.0); Mean Corpuscular Volume 92.5 fL (81.0-99.0); Mean Platelet Volume 8.6 fL (7.4-10.4); Platelet Count 81 10^3/uL (130-400); Red Blood Cell Count 3.33 10^6/uL (4.20-5.40); Red Cell Dist. Width 15.3 % (11.5-14.5); White Blood Cell Count 3.1 10^3/uL (4.8-10.8)
[2023-05-16 10:16] LABS: ALT (SGPT) < 10 U/L (0-35); AST (SGOT) 16 U/L (14-36); Albumin 4.1 g/dl (3.5-5.0); Alkaline Phosphatase 102 U/L (38-126); Blood Urea Nitrogen 24 mg/dl (7-17); Calcium 8.9 mg/dl (8.4-10.2); Carbon Dioxide 31 mmol/L (22-30); Chloride 99 mmol/L (98-107); Glucose 106 mg/dl (70-99); Potassium 4.5 mmol/L (3.5-5.1); Sodium 139 mmol/L (135-145); Total Bilirubin 0.6 mg/dl (0.2-1.3); Total Protein 8.3 g/dl (6.3-8.2); eGFR 12.85
[2023-05-18 15:38] LABS: Beta-2-Microglobulin 31.1 mg/L (<=3.0)
[2023-05-20 00:04] LABS: Albumin 3.77 g/dL (3.75-5.01); Alpha 1 Globulin 0.41 g/dL (0.19-0.46); Alpha 2 Globulin 0.83 g/dL (0.48-1.05); Free Kappa Light Chains,Quant 803.37 mg/L (3.30-19.40); Free Lambda Light Chains,Quant 149.97 mg/L (5.71-26.30); IgA 89 mg/dL (68-408); IgG 2498 mg/dL (768-1632); IgM 174 mg/dL (35-263); Immunofixation Electrophoresis IFE Done; Kappa/Lambda Fr Light Ratio 5.36 (0.26-1.65); Monoclonal Protein 1.63 g/dL (<=0.00); Total Protein-Electrophoresis 8.2 g/dL (6.3-8.2)
== END ==
LOC: OIDL 09:20
PROVIDERS: ATTENDING PHYSICIAN Internal Medicine Hematology & Oncology
DX: D61.818 Other pancytopenia (principal); D47.2 Monoclonal gammopathy; D50.9 Iron deficiency anemia, unspecified; D63.1 Anemia in chronic kidney disease; N18.30 Chronic kidney disease, stage 3 unspecified
CPT/HCPCS: 36415; 80053; 82232; 82784; 83521; 84155; 84165; 85025; 86334

== ENCOUNTER → 2023-05-28 12:03 | Outpatient (REF) | payer MEDICAID, SELFPAY | LOC: RADI 12:03 | PROVIDERS: ATTENDING PHYSICIAN Internal Medicine Nephrology | DX: Z49.01 Encounter for fitting and adjustment of extracorporeal dialysis catheter (principal); N18.6 End stage renal disease | CPT/HCPCS: 36589 ==

== ENCOUNTER → 2024-03-26 12:25 | Outpatient (REF) | payer MEDICAID, SELFPAY | LOC: RAD 12:25 | PROVIDERS: ATTENDING PHYSICIAN Surgery Vascular Surgery | DX: N18.4 Chronic kidney disease, stage 4 (severe) (principal); I77.0 Arteriovenous fistula, acquired | CPT/HCPCS: 93990 ==